=== PATIENT | female | born 1985 | race Caucasian/White ===

== ENCOUNTER 2023-07-05 09:46 | Emergency (ER) | payer OTHER, SELFPAY ==
[2023-07-05 09:51] VITALS: BP 124/81; PULSE 71; RESP 16; TEMP 36.4; O2SAT 97; BMI 30.1
--- NOTE | 2023-07-05 09:58 | ED_ITS ---
HPI - General Adult General Chief complaint: Abdominal Pain Stated complaint: ABDOMINAL PAIN Time Seen by Provider: 07/05/23 09:54 Source: patient Mode of arrival: walk-in History of Present Illness HPI narrative: 38-year-old female presents for diarrhea. She had it fourteen times yesterday and it was watery, no blood. It began three days ago after eating at a restaurant. She has not been vomiting and has not had a fever. Pain in the left upper quadrant of her abdomen. The pain is moderate. Related Data Previous Rx's Medication Instructions Recorded dicyclomine 10 mg capsule 10 mg PO QID PRN abdominal pain 07/05/23 #20 caps Allergies Allergy/AdvReac Type Severity Reaction Status Date / Time ibuprofen [From Motrin] Allergy Verified 07/05/23 09:56 Sulfa (Sulfonamide Allergy Verified 07/05/23 09:56 Antibiotics) Review of Systems ROS Narrative A ten point review of systems is negative except as noted above. Exam Narrative Exam Narrative: Nurses note and vital signs reviewed and patient is not hypoxic. General: The patient appears well and in no apparent distress. Patient is resting comfortably on cart. Skin: Warm, dry, no pallor noted. There is no rash noted. Head: Normocephalic, atraumatic Eye: Normal conjunctiva, no drainage Ears, Nose, Mouth, and Throat: oral mucosa is moist. Nares patent. Cardiovascular: Regular Rate and Rhythm Respiratory: Patient is in no distress, no accessory muscle use, lungs are clear to auscultation, no wheezing, rales or rhonchi Back: non-tender, GI: mild tenderness on the left side of her abdomen particularly in the left upper quadrant. No mass or distention. Musculoskeletal: The patient has no evidence of calf tenderness, no pitting edema, symmetrical pulses noted bilaterally Neurological: A&O, normal speech Psychiatric: Cooperative Constitutional Vital Signs, click to edit/add: Last Vital Signs Temp 97.6 F 07/05/23 09:51 Pulse 70 07/05/23 10:44 Resp 16 07/05/23 09:51 BP 106/73 07/05/23 10:44 Pulse Ox 100 07/05/23 10:44 O2 Del Method Room Air 07/05/23 09:51 Course Vital Signs Vital signs: Vital Signs Temperature 97.6 F 07/05/23 09:51 Pulse Rate 71 07/05/23 09:51 Respiratory Rate 16 07/05/23 09:51 Blood Pressure 124/81 07/05/23 09:51 Pulse Oximetry 97 07/05/23 09:51 Oxygen Delivery Method Room Air 07/05/23 09:51 Temperature 97.6 F 07/05/23 09:51 Pulse Rate 70 07/05/23 10:44 Respiratory Rate 16 07/05/23 09:51 Blood Pressure 106/73 07/05/23 10:44 Pulse Oximetry 100 07/05/23 10:44 Oxygen Delivery Method Room Air 07/05/23 09:51 Medical Decision Making MDM Narrative Medical decision making narrative: the patient's blood work is unremarkable and she is able to be discharged home. Treatment diagnosis and follow-up were discussed with the patient. Differential Diagnosis Differential Diagnosis: Astra enteritis, constipation, food poisoning Lab Data Lab results reviewed: Yes I reviewed the patient's lab results Labs: Lab Results 07/05/23 07/05/23 Range/Units 10:00 10:05 WBC 9.5 (4.0-11.0) 10^3/uL RBC 4.43 (4.20-5.40) 10^6/uL Hgb 12.7 (12.0-16.0) g/dL Hct 37.9 (36.0-48.0) % MCV 85.6 (81.0-99.0) fL MCH 28.7 (26.7-34.0) pg MCHC 33.5 (29.9-35.2) g/dL RDW 12.8 (11.0-15.0) % Plt Count 329 (150-450) 10^3/uL MPV 9.5 (9.5-13.5) fL Neut % (Auto) 68.0 (43.0-75.0) % Lymph % (Auto) 21.0 (20.5-60.0) % [place] % (Auto) 8.4 (1.7-12.0) % Eos % (Auto) 1.8 (0.9-7.0) % Baso % (Auto) 0.5 (0.2-2.0) % Neut # (Auto) 6.5 (1.4-6.5) 10^3/uL Lymph # (Auto) 2.0 (1.2-3.8) 10^3/uL [place] # (Auto) 0.8 (0.3-0.8) 10^3/uL Eos # (Auto) 0.2 (0.0-0.7) 10^3/uL Baso # (Auto) 0.1 (0.0-0.1) 10^3/uL Abs Immat Gran (auto) 0.03 (0.00-0.03) 10^3/uL Imm/Tot Granulo (auto) 0.3 (0.0-0.5) % Sodium 136 (136-145) mmol/L Potassium 3.6 (3.5-5.1) mmol/L Chloride 102 (98-107) mmol/L Carbon Dioxide 29.4 (21.0-32.0) mmol/L Anion Gap 8.2 BUN 10.0 (7.0-18.0) mg/dL Creatinine 0.96 (0.55-1.02) mg/dL Est GFR ( Amer) >60 (>=60) Est GFR (Non-Af Amer) >60 (>=60) BUN/Creatinine Ratio 10.4 Glucose 92 (74-106) mg/dL Calcium 9.0 (8.5-10.1) mg/dL Serum HCG, Qual Negative (NEGATIVE) Urine Color Yellow (YELLOW) Urine Clarity Clear (CLEAR) Urine pH 5.5 (5.0-9.0) Ur Specific [place] >=1.030 A (1.005-1.025) Urine Protein Negative (NEG/TRACE) mg/dL Urine Glucose (UA) Negative (NEGATIVE) mg/dL Urine Ketones Negative (NEGATIVE) mg/dL Urine Occult Blood Trace-i (NEGATIVE) Urine Nitrite Negative (NEGATIVE) Urine Bilirubin Negative (NEGATIVE) Urine Urobilinogen 0.2 (0.2-1.0) EU/dL Ur Leukocyte Esterase Negative (NEGATIVE) Urine RBC 2-5 A (0-2) #/HPF Urine WBC 5-10 A (NONE SEEN) #/HPF Ur Squamous Epith Cells Moderate A (NONE/RARE) #/LPF Urine Crystals None seen (None Seen) #/HPF Urine Bacteria Moderate A (NONE SEEN) #/HPF Urine Casts None seen (NONE SEEN) #/LPF Urine Mucus None seen (NONE SEEN) Ur Culture Indicated? Yes Discharge Plan Discharge Chief Complaint: Abdominal Pain Clinical Impression: Gastroenteritis Patient Disposition: Home, Self-Care Time of Disposition Decision: 11:14 Condition: Good Mode of Transportation: Private Vehicle Prescriptions / Home Meds: New dicyclomine 10 mg capsule 10 mg PO QID PRN (Reason: abdominal pain) Qty: 20 0RF Instructions: Acute Diarrhea (ED) Stand Alone Forms: Portal Instructions Referrals: Physician,Non-Staff, MD [Primary Care Provider] - 1 week Discharge Date/Time: 07/05/23 11:29
[2023-07-05 10:13] LABS: Basophils Absolute Auto 0.1 10^3/uL (0.0-0.1); Basophils Percent Auto 0.5 % (0.2-2.0); Eosinophils Absolute Auto 0.2 10^3/uL (0.0-0.7); Eosinophils Percent Auto 1.8 % (0.9-7.0); Hematocrit 37.9 % (36.0-48.0); Hemoglobin 12.7 g/dL (12.0-16.0); Immature Granulocytes Abs Auto 0.03 10^3/uL (0.00-0.03); Immature Granulocytes Pct Auto 0.3 % (0.0-0.5); Mean Corpuscular HGB Conc 33.5 g/dL (29.9-35.2); Mean Corpuscular Hemoglobin 28.7 pg (26.7-34.0); Mean Corpuscular Volume 85.6 fL (81.0-99.0); Mean Platelet Volume 9.5 fL (9.5-13.5); Monocytes Absolute Auto 0.8 10^3/uL (0.3-0.8); Monocytes Percent Auto 8.4 % (1.7-12.0); Neutrophils Absolute Auto 6.5 10^3/uL (1.4-6.5); Platelet Count 329 10^3/uL (150-450); Red Blood Count 4.43 10^6/uL (4.20-5.40); Red Cell Distribution Width 12.8 % (11.0-15.0); White Blood Count 9.5 10^3/uL (4.0-11.0)
[2023-07-05] MEDS: 0.9 % SODIUM CHLORIDE 1,000 ML 1000 ML IV (10:14)
[2023-07-05 10:17] LABS: Bilirubin Urine NEGATIVE (NEGATIVE); Blood Urine TRACE-I (NEGATIVE); Clarity Urine CLEAR (CLEAR); Color Urine YELLOW (YELLOW); Glucose Urine UA NEGATIVE (NEGATIVE); Ketones Urine NEGATIVE (NEGATIVE); Leukocyte Esterase Urine NEGATIVE (NEGATIVE); Nitrite Urine NEGATIVE (NEGATIVE); Protein Urine NEGATIVE (NEG/TRACE); Specific Gravity Urine >=1.030 (1.005-1.025); Urobilinogen Urine 0.2 EU/dL (0.2-1.0); pH Urine 5.5 (5.0-9.0)
[2023-07-05 10:25] LABS: Anion Gap 8.2; BUN Creatinine Ratio 10.4; Carbon Dioxide 29.4 mmol/L (21.0-32.0); Chloride 102 mmol/L (98-107); Estimated GFR (African America >60 (>=60); Estimated GFR (Non-African Ame >60 (>=60); Glucose 92 mg/dL (74-106); Potassium 3.6 mmol/L (3.5-5.1); Sodium 136 mmol/L (136-145)
[2023-07-05 10:27] LABS: Bacteria Urine MODERATE #/HPF (NONE SEEN); Mucus Urine NONE SEEN (NONE SEEN); Squamous Epithelial Cell Urine MODERATE #/LPF (NONE/RARE)
[2023-07-05 10:28] LABS: Cast Seen? NONE SEEN #/LPF (NONE SEEN); Crystals Seen? None Seen #/HPF (None Seen); Urine Culture Indicated YES
[2023-07-05 10:29] LABS: HCG Qualitative NEGATIVE (NEGATIVE)
[2023-07-05 10:44] VITALS: BP 106/73; PULSE 70; O2SAT 100
== END 2023-07-05 11:29 | disposition home or self-care (01) ==
PROVIDERS: Emergency Provider Emergency Medicine
DX: R10.12 Left upper quadrant pain (principal); R19.7 Diarrhea, unspecified
CPT/HCPCS: 36415; 80048; 81001; 84703; 85025; 87045; 87086; 96360; 99284

== ENCOUNTER 2024-02-07 15:50 | Outpatient (OUT) | payer OTHER, SELFPAY ==
[2024-02-07 16:45] LABS: Basophils Percent Auto 0.5 % (0.2-2.0); Eosinophils Absolute Auto 0.1 10^3/uL (0.0-0.7); Eosinophils Percent Auto 0.8 % (0.9-7.0); Hematocrit 37.8 % (36.0-48.0); Hemoglobin 12.3 g/dL (12.0-16.0); Immature Granulocytes Abs Auto 0.03 10^3/uL (0.00-0.03); Immature Granulocytes Pct Auto 0.4 % (0.0-0.5); Lymphocytes Absolute Auto 1.4 10^3/uL (1.2-3.8); Lymphocytes Percent Auto 17.7 % (20.5-60.0); Mean Corpuscular HGB Conc 32.5 g/dL (29.9-35.2); Mean Corpuscular Hemoglobin 27.9 pg (26.7-34.0); Mean Corpuscular Volume 85.7 fL (81.0-99.0); Mean Platelet Volume 9.8 fL (9.5-13.5); Monocytes Absolute Auto 0.5 10^3/uL (0.3-0.8); Monocytes Percent Auto 5.8 % (1.7-12.0); Neutrophils Absolute Auto 5.8 10^3/uL (1.4-6.5); Neutrophils Percent Auto 74.8 % (43.0-75.0); Platelet Count 344 10^3/uL (150-450); Red Blood Count 4.41 10^6/uL (4.20-5.40); Red Cell Distribution Width 13.2 % (11.0-15.0); White Blood Count 7.7 10^3/uL (4.0-11.0)
[2024-02-07 16:53] LABS: Estimated Average Glucose 108 mg/dL; Glycohemoglobin A1C 5.4 % (4.5-6.2)
[2024-02-07 17:05] LABS: HCG Quantitative <1 mIU/mL; Thyroid Stimulating Hormone 1.636 uIU/mL (0.358-3.740)
[2024-02-07 17:37] LABS: Free T4 1.12 ng/dL (0.76-1.46)
== END 2024-02-07 15:51 | disposition home or self-care (01) ==
LOC: LAB 15:50
PROVIDERS: Visit Provider Obstetrics & Gynecology
DX: E28.2 Polycystic ovarian syndrome (principal)
CPT/HCPCS: 36415; 82607; 82626; 82627; 82652; 82728; 83001; 83002; 83036; 84439; 84443; 84702; 85025

== ENCOUNTER 2024-02-07 20:36 | Outpatient (REF) | payer OTHER, SELFPAY | END 2024-02-07 20:37 | disposition home or self-care (01) | LOC: LAB 20:36 | PROVIDERS: Visit Provider Obstetrics & Gynecology | DX: Z01.419 Encounter for gynecological examination (general) (routine) without abnormal findings (principal); E28.2 Polycystic ovarian syndrome | CPT/HCPCS: 36415; 82607; 82626; 82627; 82652; 82728; 83001; 83002; 83036; 84439; 84443; 84702; 85025; 87624; G0145 ==

== ENCOUNTER 2024-03-11 09:46 | Outpatient (REF) | payer OTHER, SELFPAY ==
--- OUTSIDE RECORDS SUMMARY | 2024-03-15 07:25 | XMS_ITS | CCD ---
Author Organization [facility] Care Team Providers Care Speedboat Operator Name Role Phone Yon Meyer MD Primary Care Provider [phone] YON MEYER Referring Unavailable MEYER, YON Primary Care Unavailable MEYER, DR YON Giang Primary Care Unavailable MEYER, DR YON Giang Admitting Unavailable MEYER, DR YON Giang Attending Unavailable MEYER, DR YON Giang Primary Care Unavailable MEYER, DR YON Giang Admitting Unavailable MEYER, DR YON Giang Attending Unavailable MEYER, DR YON Giang Consulting Unavailable MEYER, DR YON Giang Primary Care Unavailable FERGUSON, DR VLAD Gasca Admitting Unavailable FERGUSON, DR VLAD Gasca Attending Unavailable FERGUSON, DR VLAD Gasca Consulting Unavailable MEYER, DR YON Giang Primary Care Unavailable FERGUSON, DR VLAD Gasca Admitting Unavailable FERGUSON, DR VLAD Gasca Attending Unavailable MEYER, DR YON Giang Consulting Unavailable MEYER, DR YON Giang Primary Care Unavailable FERGUSON, DR VLAD Gasca Admitting Unavailable FERGUSON, DR VLAD Gasca Attending Unavailable NO PCP, NO PCP Primary Care Unavailable SABIHA PORTILLO Attending Unavailable APLING, RAMANDEEP Etienne Attending Unavailable APLING, RAMANDEEP B Referring Unavailable APLING, RAMANDEEP B Attending Unavailable APLING, RAMANDEEP B Attending Unavailable MARY MANRIQUEZ Attending Unavailable APLING, RAMANDEEP B Referring Unavailable BRIAN GUTIERREZ Attending Unavailable APLING, RAMANDEEP B Referring Unavailable KELRENETTA NIELSEN Attending Unavailable APLING, RAMANDEEP B Referring Unavailable NICOLEJAMI CARTERY Attending Unavailable KELBLEY, RENETTA Attending Unavailable APLING, RAMANDEEP B Referring Unavailable KELARCELIAY, RENETTA Attending Unavailable APLING, RAMANDEEP B Referring Unavailable TOO SAXENA Attending Unavailable ZAKI GOODRICH Attending Unavailable NICOLETOO CARTER Attending Unavailable Too Saxena Attending Provider [phone] Too Saxena Attending Unavailable Too Saxena Admitting Unavailable Allergies Allergy Classification Reported Allergen(s) Allergy Type Date of Onset Reaction(s) Facility (1 source) Sulfonamides (Antibiotic) Propensity to adverse reactions to drug 6 Nausea And Vomiting, Rash [facility] Work Phone: (2 sources) SUMAtriptan; Translations: [SUMATRIPTAN] Drug Allergy 6 Swelling [facility] (2 sources) Ciprofloxacin Drug Allergy 4 [facility] Repository (2 sources) Ibuprofen Drug Allergy 3 [facility] Repository (2 sources) Plasmin Drug Allergy 3 [facility] Repository (1 source) Ciprofloxacin; Translations: [CIPROFLOXACIN HCL] Drug Allergy 7 [facility] Repository (1 source) Ibuprofen; Translations: [IBUPROFEN] Drug Allergy 7 [facility] Repository (1 source) peanut allergenic extract; Translations: [PEANUT] Drug Allergy 4 [facility] Repository (1 source) Shrimp product; Translations: [SHRIMP] Propensity to adverse reactions to food (disorder) 4 [facility] Repository (1 source) sulfaSALAzine; Translations: [SULFASALAZINE] Drug Allergy 7 [facility] Repository Medications Current Medications Medication Drug Class(es) Dates Sig (Normalized) Sig (Original) cetirizine hydrochloride 10 mg oral tablet (1 source) Histamine-1 Receptor Antagonist take 1 tablet by mouth once daily cetirizine (ZYRTEC) 10 MG tablet Take 10 mg by mouth daily 0 Active naproxen 500 mg oral tablet (1 source) Nonsteroidal Anti-inflammatory Drug Start: 02-26-2016 take 1 tablet by mouth twice daily for pain naproxen (NAPROSYN) 500 MG tablet Take 1 tablet by mouth 2 times daily For pain and inflammation 30 tablet 0 02/26/2016 Active NONFORMULARY (1 source) NONFORMULARY Vit D 3, 4000 units daily 50,000 every monday 0 Active tiZANidine 2 mg oral tablet (1 source) Central alpha-2 Adrenergic Agonist take 1 tablet by mouth every six hours as needed tiZANidine (ZANAFLEX) 2 MG tablet Take 2 mg by mouth every 6 hours as needed 0 Active Problems Active Problems Problem Classification Problem Date Documented Date Episodic/Chronic Cardiac dysrhythmias (4 sources) Palpitations; Translations: [PALPITATIONS] Onset: 06-08-2022 Episodic Disorders of teeth and jaw (2 sources) Periapical abscess without sinus; Translations: [Toothache] Onset: 02-19-2024 Episodic Headache; including migraine (1 source) Headache; including migraine; Translations: [HEADACHE UNSPECIFIED] Onset: 02-18-2022 Spondylosis; intervertebral disc disorders; other back problems (4 sources) Other spondylosis with radiculopathy, cervical region; Translations: [OTH SPONDYLS RADICULOPATHY CERV RGN] Onset: 02-15-2022 Chronic Spondylosis; intervertebral disc disorders; other back problems (1 source) Brachial neuritis; Translations: [Radiculopathy, cervical region] Episodic Unclassified (1 source) Dental Pain, Facial Swelling Onset: 02-19-2024 Past or Other Problems Problem Classification Problem Date Documented Da te Episodic/Chronic Other connective tissue disease (1 source) Pain in right arm; Translations: [PAIN IN RIGHT ARM] Onset: 02-18-2022 Episodic Results Test Name Value Interpretation Reference Range Facility [facility] 03-11-2024 L Specimen: [id number] Received: 03/12/24 Status: ASHLEY Mora Num: [id number] Spec Type: Surgical Subm Dr: Too Saxena Tissues: A Endocervix - Curettings (ECC) Procedures: HE/2, Gross/Micro L4 Age/ Patient Sex Location Account Attending Physician Davina Harris 38/F LABELL [id number] Too Saxena SPEC NUM: [id number] RECD: 03/12/24 STATUS: ASHLEY MORA NUM: [id number] MARTA: 03/11/24- SUBM DR: Too Saxena ENTERED: 03/12/[address]: Priyank,Lab SPEC TYPE: Surgical DEPT: RUCHI ELIZONDO ORDERED: HE/2, Gross/Micro L4 ORDERED: HE/2, Gross/Micro L4 Pathological Diagnosis Endocervix, curettage: Fragments of endocervix, unremarkable. Clinical Information LGSIL, positive HPV. R87.612. Gross Description Received in formalin labeled with the patient's name, date of and ECC is a 1.9 x 0.6 x 0.1 cm aggregate of jo tissue and mucus, entirely submitted in A1. CPT Codes 11048 -------- -------- Specimen: [id number] Received: 03/12/24 Status: ASHLEY Mora Num: [id number] Spec Type: Surgical Subm Dr: Too Saxena Tissues: A Endocervix - Curettings (ECC) Procedures: Sonam DU/Riddhi L4 -------- Patient: StevenDavina [id number] (Continued) -------- Signed (signature on file) Lizzy Montero MD 03/13/24 1514 Normal [facility] MR KNEE LEFT WO IV CONTRASTo n 11-24-2023 MR KNEE LEFT WO IV CONTRAST EXAMINATION: MR KNEE LEFT WO IV CONTRAST HISTORY: left knee internal derangement chronic worsening medial knee pain. Locking sensation. TECHNIQUE: Routine non-contrast MRI of the knee, LEFT COMPARISON: None RESULT: MENISCI: Medial Meniscus: Intact Lateral Meniscus: Intact LIGAMENTS: ACL, PCL, MCL, and LCL complex intact. CARTILAGE: Small area of low-grade partial-thickness chondral fissuring or signal abnormality of the medial femoral condyle. TENDONS: Distal quadriceps intact. Patellar tendon intact. Popliteus intact. BONES AND MARROW: No evidence of fracture or bone marrow replacing process. MUSCLES: Muscle bulk and signal intensity are normal. JOINT FLUID AND SYNOVIUM: No joint effusion. No synovitis. No Allen's cyst. OTHER: No other significant abnormality. IMPRESSION: Intact menisci and ligaments. Mild degenerative changes medial compartment. ELECTRONICALLY SIGNED BY: Yon Wren MD Normal Not Available CBC WITH DIFFon 06-03-2022 ABS BASOPHIL 0.04 x10^3ul Normal (0.00 - 0.16) [facility] Comment on above: Order Comment: FACIL ITY: [facility] [id number] Performed By: #### C BC/D, CHEM-C, TSHT34, GLYCO+, B12+, MG #### [facility] [address] [facility], [address] ABS EOSINOPHIL 0.14 x10^3ul Normal (0.00 - 0.40) [facility] Comment on above: Order Comment: FACIL ITY: [facility] [id number] Performed By: #### C BC/D, CHEM-C, TSHT34, GLYCO+, B12+, MG #### [facility] [address] [facility], [address] ABS IMMATURE GRANS 0.01 x10^3ul Normal (0.00 - 0.11) [facility] Comment on above: Order Comment: FACIL ITY: [facility] [id number] Performed By: #### C BC/D, CHEM-C, TSHT34, GLYCO+, B12+, MG #### [facility] [address] [place], [address] ABS LYMPHOCYTE 1.45 x10^3ul Normal (0.96 - 5.40) [facility] Comment on above: Order Comment: FACIL ITY: [facility] [id number] Performed By: #### C BC/D, CHEM-C, TSHT34, GLYCO+, B12+, MG #### [facility] [address] [place], [address] ABS MONOCYTE 0.65 x10^3ul Normal (0.10 - 1.00) [facility] Comment on above: Order Comment: FACIL ITY: [facility] [id number] Performed By: #### C BC/D, CHEM-C, TSHT34, GLYCO+, B12+, MG #### [facility] [address] [place], [address] ABS NEUTROPHIL 4.72 x10^3ul Normal (1.50 - 7.00) [facility] Comment on above: Order Comment: FACIL ITY: [facility] [id number] Performed By: #### C BC/D, CHEM-C, TSHT34, GLYCO+, B12+, MG #### [facility] [address] [place], [address] Basophils/100 WBC (Bld) 0.6 % Normal () [facility] Comment on above: Order Comment: FACIL ITY: [facility] [id number] Performed By: #### C BC/D, CHEM-C, TSHT34, GLYCO+, B12+, MG #### [facility] [address] [place], [address] Eosinophils/100 WBC (Bld) 2.0 % Normal () [place] [facility] Comment on above: Order Comment: [facility] [id number] Performed By: #### C BC/D, CHEM-C, TSHT34, GLYCO+, B12+, MG #### [facility] [address] [place], [address] Hematocrit (Bld) [Volume fraction] 38.5 % Normal (37.0 - 47.0) [facility] on above: Order Comment: [facility] [id number] Performed By: #### C BC/D, CHEM-C, TSHT34, GLYCO+, B12+, MG #### [facility] [address] [place], [address] Hemoglobin (Bld) [Mass/Vol] 12.5 g/dL Normal (12.0 - 16.0) [place] Comment on above: Order Comment: FACIL ITY: [facility] [id number] Performed By: #### C BC/D, CHEM-C, TSHT34, GLYCO+, B12+, MG #### [facility] [address] [place], [address] IMMATURE GRANS (IG) 0.1 % Normal () [facility] Comment on above: Order Comment: FACIL ITY: [facility] [id number] Performed By: #### C BC/D, CHEM-C, TSHT34, GLYCO+, B12+, MG #### [facility] [address] [place], [address] LYMPS 20.7 % Normal () [facility] Comment on above: Order Comment: FACIL ITY: [facility] [id number] Performed By: #### C BC/D, CHEM-C, TSHT34, GLYCO+, B12+, MG #### [facility] [address] [place], [address] MCH (RBC) [Entitic mass] 28.9 pg Normal (27.0 - 33.0) [facility] Comment on above: Order Comment: [facility] [id number] Performed By: #### C BC/D, CHEM-C, TSHT34, GLYCO+, B12+, MG #### [facility] [address] [place], [address] MCHC (RBC) [Mass/Vol] 32.5 g/dL Normal (30.0 - 37.0) [facility] Comment on above: Order Comment: [facility] [id number] Performed By: #### C BC/D, CHEM-C, TSHT34, GLYCO+, B12+, MG #### [facility] [address] [place], [address] MCV (RBC) [Entitic vol] 89.1 fL Normal (81.0 - 99.0) [facility] Comment on above: Order Comment: [facility]IL ITY[facility] [id number] Performed By: #### C BC/D, CHEM-C, TSHT34, GLYCO+, B12+, MG #### [facility] [address] [place], [address] MONOS 9.3 % Normal () [facility] Comment on above: Order Comment: [facility] ITY[facility] [id number] Performed By: #### C BC/D, CHEM-C, TSHT34, GLYCO+, B12+, MG #### [facility] [address] [place], [address] PLT 255 x10^3ul Normal (130 - 400) [facility] Comment on above: Order Comment: FACIL ITY: [facility] [id number] Performed By: #### C BC/D, CHEM-C, TSHT34, GLYCO+, B12+, MG #### [facility] [address] [place], [address] RBC 4.32 x10^6ul Normal (4.20 - 5.40) [facility] Comment on above: Order Comment: FACIL ITY: [facility] [id number] Performed By: #### C BC/D, CHEM-C, TSHT34, GLYCO+, B12+, MG #### [facility] [address] [place], [address] RDW-SD 43.2 fl Normal (37.0 - 49.0) [facility] Comment on above: Order Comment: FACIL ITY: [facility] [id number] Performed By: #### C BC/D, CHEM-C, TSHT34, GLYCO+, B12+, MG #### [facility] [address] [place], [address] SEGS 67.3 % Normal () [facility] Comment on above: Order Comment: FACIL ITY: [facility] [id number] Performed By: #### C BC/D, CHEM-C, TSHT34, GLYCO+, B12+, MG #### [facility] [address] [place], [address] WBC 7.02 x10^3ul Normal (3.80 - 10.60) [facility] Comment on above: Order Comment: FACIL ITY: [facility] [id number] Performed By: #### C BC/D, CHEM-C, TSHT34, GLYCO+, B12+, MG #### [facility] [address] [place], [address] COMP METABOLIC PANEL W/GFRon 06-03-2022 Albumin [Mass/Vol] 5.2 g/dL High (3.5 - 5.0) [facility] Comment on above: Performed By: #### C BC/D, CHEM-C, TSHT34, GLYCO+, B12+, MG #### [place] [facility] [address] [place], [address] ALK PHOS 58 U/L Normal (38 - 126) [place] [facility] Comment on above: Performed By: #### C BC/D, CHEM-C, TSHT34, GLYCO+, B12+, MG #### [place] [facility] [address] [place], [address] ALT [Catalytic activity/Vol] 31 U/L Normal (1 - 35) [place] [facility] Comment on above: Performed By: #### C BC/D, CHEM-C, TSHT34, GLYCO+, B12+, MG #### [facility] [address] [place], [address] AST [Catalytic activity/Vol] 28 U/L Normal (15 - 46) [place] [facility] Comment on above: Performed By: #### C BC/D, CHEM-C, TSHT34, GLYCO+, B12+, MG #### [place] [facility] [address] [place], [address] Bilirubin [Mass/Vol] 0.6 mg/dL Normal (0.2 - 1.3) [facility] Comment on above: Performed By: #### C BC/D, CHEM-C, TSHT34, GLYCO+, B12+, MG #### [place] [facility] [address] [place], [address] Calcium [Mass/Vol] 9.8 mg/dL Normal (8.6 - 10.6) [facility] Comment on above: Performed By: #### C BC/D, CHEM-C, TSHT34, GLYCO+, B12+, MG #### [facility] [address] [place], [address] Chloride [Moles/Vol] 108 mmol/L High (98 - 107) [facility] Comment on above: Performed By: #### C BC/D, CHEM-C, TSHT34, GLYCO+, B12+, MG #### [facility] [address] [place], [address] CO2 [Moles/Vol] 25 mmol/L Normal (22 - 30) [facility] Comment on above: Performed By: #### C BC/D, CHEM-C, TSHT34, GLYCO+, B12+, MG #### [facility] [address] [place], [address] Creatinine [Mass/Vol] 0.70 mg/dL Normal (0.52 - 1.04) [place] Comment on above: Performed By: #### C BC/D, CHEM-C, TSHT34, GLYCO+, B12+, MG #### [facility] [address] [place], [address] GFR- AMER 113.9 ML/M1.7 Normal (60.0 - 140.1) [place] [facility] Comment on above: Performed By: #### C BC/D, CHEM-C, TSHT34, GLYCO+, B12+, MG #### [facility] [address] [place], [address] GFR-NON AFRIC-AMER 94.2 ML/M1.7 Normal (60.0 - 115.8) [place] [facility] Comment on above: Performed By: #### C BC/D, CHEM-C, TSHT34, GLYCO+, B12+, MG #### [place] [address] [place], [address] Glucose [Mass/Vol] 95 mg/dL Normal (74 - 106) [facility] Comment on above: Performed By: #### C BC/D, CHEM-C, TSHT34, GLYCO+, B12+, MG #### [facility] [address] [place], [address] Potassium [Moles/Vol] 5.4 mmol/L High (3.5 - 5.1) [facility] Comment on above: Performed By: #### C BC/D, CHEM-C, TSHT34, GLYCO+, B12+, MG #### [facility] [address] [place], [address] Protein [Mass/Vol] 7.6 g/dL Normal (6.3 - 8.2) [facility] on above: Performed By: #### C BC/D, CHEM-C, TSHT34, GLYCO+, B12+, MG #### [facility] [address] [place], [address] Sodium [Moles/Vol] 142 mmol/L Normal (137 - 145) [facility] on above: Performed By: #### C BC/D, CHEM-C, TSHT34, GLYCO+, B12+, MG #### [facility] [address] [place], [address] Urea nitrogen [Mass/Vol] 14 mg/dL Normal (7 - 17) [facility] Comment on above: Performed By: #### C BC/D, CHEM-C, TSHT34, GLYCO+, B12+, MG #### [place] [address] [place], [address] GLYCO A1C AND AVG GLUon 09-0 2-2 Glucose [Mass/Vol] 117 mg/dL Normal (60 - 140) [facility] Comment on above: Result Comment: AVER AGE BLOOD GLUCOSE CALCULATED USING GLYCO A1C VALUE: THE [employer] RECOMMENDED REFERENCE RANGES: NORMAL <= 5.6 % PRE-DIABETES 5.7 - 6.4 % (HIGH RISK FOR DEVELOPING DIABETES) DIABETES >= 6.5 % Performed By: #### C BC/D, CHEM-C, TSHT34, GLYCO+, B12+, MG #### [facility] [address] [place], [address] HbA1c (Bld) [Mass fraction] 5.7 % Normal (4.4 - 6.4) [facility] Comment on above: Performed By: #### C BC/D, CHEM-C, TSHT34, GLYCO+, B12+, MG #### [facility] [address] [place], [address] MAGNESIUMon 06-03-2022 Magnesium [Mass/Vol] 2.4 mg/dL High (1.6 - 2.3) [facility] Comment on above: Performed By: #### C BC/D, CHEM-C, TSHT34, GLYCO+, B12+, MG #### [facility] [address] [place], [address] T3 FREE, T4 FREE AND TSHon 0 06-03-2022 Free T3 [Mass/Vol] 4.32 pg/mL Normal (2.32 - 6.09) [facility] Comment on above: Performed By: #### C BC/D, CHEM-C, TSHT34, GLYCO+, B12+, MG #### [facility] [address] [place], [address] Free T4 [Mass/Vol] 1.10 ng/dL Normal (0.78 - 2.35) [facility] Comment on above: Performed By: #### C BC/D, CHEM-C, TSHT34, GLYCO+, B12+, MG #### [facility] [address] [place], [address] TSH Qn 1.05 m[IU]/L Normal (0.470 - 4.680) [facility] Comment on above: Performed By: #### C BC/D, CHEM-C, TSHT34, GLYCO+, B12+, MG #### [facility] [address] [place], [address] VIT B12 AND FOLATEon 022 Cobalamin (Vitamin B12) [Mass/Vol] 366 pg/mL Normal (239 - 931) [facility] Comment on above: Performed By: #### C BC/D, CHEM-C, TSHT34, GLYCO+, B12+, MG #### [facility] [address] [facility], [address] FOLIC ACID 5.3 NG/ML Normal (2.8 - 20.0) [facility] Comment on above: Performed By: #### C BC/D, CHEM-C, TSHT34, GLYCO+, B12+, MG #### [facility] [address] [facility], [address] MRI CERVICAL SPINE WO CONTRA STon 10-11-2021 MRI CERVICAL SPINE WO CONTRAST EXAMINATION: MRI OF THE CERVICAL SPINE WITHOUT CONTRAST 10/11/2021 5:05 pm TECHNIQUE: Multiplanar multisequence MRI of the cervical spine was performed without the administration of intravenous contrast. COMPARISON: None. HISTORY: ORDERING SYSTEM PROVIDED HISTORY: Brachial neuritis TECHNOLOGIST PROVIDED HISTORY: Is the patient ?->No Reason for Exam: radiculopathy cervical region Additional signs and symptoms: numbness tingling down right arm into fingers, no injury FINDINGS: BONES/ALIGNMENT: There is normal alignment of the spine. The vertebral body heights are maintained. The bone marrow signal appears unremarkable. Mild C2-C3 through C5-C6 degenerative disc desiccation. SPINAL CORD: No abnormal cord signal is seen. SOFT TISSUES: No paraspinal mass identified. C2-C3: There is no significant disc protrusion, spinal canal stenosis or neural foraminal narrowing. C3-C4: There is no significant disc protrusion, spinal canal stenosis or neural foraminal narrowing. C4-C5: There is no significant disc protrusion, spinal canal stenosis or neural foraminal narrowing. C5-C6: Central/right paracentral inferiorly migrating disc extrusion. Mild spinal canal stenosis. No significant neural foraminal narrowing. C6-C7: There is no significant disc protrusion, spinal canal stenosis or neural foraminal narrowing. C7-T1: There is no significant disc protrusion, spinal canal stenosis or neural foraminal narrowing. IMPRESSION: 1. C5-C6 central/right paracentral inferiorly migrating disc extrusion mildly narrows the spinal canal. 2. No severe spinal canal stenosis or cord compression at any level in the cervical spine. 3. No significant cervical spine neural foraminal narrowing. RECOMMENDATIONS: Unavailable Interpreted by: Patrice Mcbride DO Signed by: Patrice Mcbride DO 10/11/21 Final result Normal [facility] 1. C5-C6 central/right paracentral inferiorly migrating disc extrusion mildly narrows the spinal canal. 2. No severe spinal canal stenosis or cord compression at any level in the cervical spine. 3. No significant cervical spine neural foraminal narrowing. RECOMMENDATIONS: Unavailable [facility] EXAMINATION: MRI OF THE CERVICAL SPINE WITHOUT CONTRAST 10/11/2021 5:05 pm TECHNIQUE: Multiplanar multisequence MRI of the cervical spine was performed without the administration of intravenous contrast. COMPARISON: None. HISTORY: ORDERING SYSTEM PROVIDED HISTORY: Brachial neuritis TECHNOLOGIST PROVIDED HISTORY: Is the patient ?->No Reason for Exam: radiculopathy cervical region Additional signs and symptoms: numbness tingling down right arm into fingers, no injury FINDINGS: BONES/ALIGNMENT: There is normal alignment of the spine. The vertebral body heights are maintained. The bone marrow signal appears unremarkable. Mild C2-C3 through C5-C6 degenerative disc desiccation. SPINAL CORD: No abnormal cord signal is seen. SOFT TISSUES: No paraspinal mass identified. C2-C3: There is no significant disc protrusion, spinal canal stenosis or neural foraminal narrowing. C3-C4: There is no significant disc protrusion, spinal canal stenosis or neural foraminal narrowing. C4-C5: There is no significant disc protrusion, spinal canal stenosis or neural foraminal narrowing. C5-C6: Central/right paracentral inferiorly migrating disc extrusion. Mild spinal canal stenosis. No significant neural foraminal narrowing. C6-C7: There is no significant disc protrusion, spinal canal stenosis or neural foraminal narrowing. C7-T1: There is no significant disc protrusion, spinal canal stenosis or neural foraminal narrowing. [facility] Patrice cMbride DO - 10/11/2021 EXAMINATION: MRI OF THE CERVICAL SPINE WITHOUT CONTRAST 10/11/2021 5:05 pm TECHNIQUE: Multiplanar multisequence MRI of the cervical spine was performed without the administration of intravenous contrast. COMPARISON: None. HISTORY: ORDERING SYSTEM PROVIDED HISTORY: Brachial neuritis TECHNOLOGIST PROVIDED HISTORY: Is the patient ?->No Reason for Exam: radiculopathy cervical region Additional signs and symptoms: numbness tingling down right arm into fingers, no injury FINDINGS: BONES/ALIGNMENT: There is normal alignment of the spine. The vertebral body heights are maintained. The bone marrow signal appears unremarkable. Mild C2-C3 through C5-C6 degenerative disc desiccation. SPINAL CORD: No abnormal cord signal is seen. SOFT TISSUES: No paraspinal mass identified. C2-C3: There is no significant disc protrusion, spinal canal stenosis or neural foraminal narrowing. C3-C4: There is no significant disc protrusion, spinal canal stenosis or neural foraminal narrowing. C4-C5: There is no significant disc protrusion, spinal canal stenosis or neural foraminal narrowing. C5-C6: Central/right paracentral inferiorly migrating disc extrusion. Mild spinal canal stenosis. No significant neural foraminal narrowing. C6-C7: There is no significant disc protrusion, spinal canal stenosis or neural foraminal narrowing. C7-T1: There is no significant disc protrusion, spinal canal stenosis or neural foraminal narrowing. IMPRESSION: 1. C5-C6 central/right paracentral inferiorly migrating disc extrusion mildly narrows the spinal canal. 2. No severe spinal canal stenosis or cord compression at any level in the cervical spine. 3. No significant cervical spine neural foraminal narrowing. RECOMMENDATIONS: Unavailable [employer] Phone: Radiology Study observation (narrative) [employer] Phone: MRI CERVICAL SPINE WO CONTRA STOrdered By: Patrice Mcbride on 10-11-2021 [employer]ly Phone: Coding Summary.on 01-28-2019 Coding Summary. CODING DATE: 01/28/2019 FINAL [facility] STATUS: Home [place]Routine [place]) PAYOR: Medicaid EAPG DESCRIPTION 0471 PLAIN FILM ADMIT DX: REASON FOR VISIT DX: M79.672 Pain in left foot FINAL DX: PRINCIPAL: M79.672 Pain in left foot SECONDARY: PYMT PROC EAPG STAT DESCRIPTION DOCTOR NAME DATE NOTE: The code number assigned matches the documented diagnosis and / or procedure in the patient's chart. However, the narrative phrase printed from the coding software may appear abbreviated, or result in slightly different terminology. Coded By: Anjelica Esparza CphT Date Saved: 01/28/2019 11:18 am Normal [facility] XR Ankle 3+ Views Lefton XR Ankle 3+ Views Left Exam Date/Time: 01/24/2019 17:41 EDT Reason for Exam: M79.672, Left foot pain Report IMPRESSION: NEGATIVE LEFT ANKLE. COMMENT: Four images of the left ankle show no fracture or dislocation. Ankle mortise is well maintained. There is a small bone island in the left distal fibula. There is no other bony or joint abnormality seen. Soft tissues are unremarkable. FINAL REPORT Dictated: 01/25/2019 7:54 am Edvin Aldridge M.D. Signed (Electronic Signature): 01/25/2019 8:58 am Signed by: Edvin Aldridge M.D. Transcribed by: miguel a Technologist: JOSE Byrnes [facility] Coding Summary.on 01-06-2019 Coding Summary. CODING DATE: 01/06/2019 FINAL [facility] STATUS: Home (Routine [place]) PAYOR: Medicaid EAPG DESCRIPTION 0527 PERIPHERAL NERVE DIAGNOSES ADMIT DX: REASON FOR VISIT DX: R20.0 Anesthesia of skin M79.601 Pain in right arm FINAL DX: PRINCIPAL: M54.12 Radiculopathy, cervical region SECONDARY: F17.210 Nicotine dependence, cigarettes, uncomplicated PYMT PROC EAPG STAT DESCRIPTION DOCTOR NAME DATE NOTE: The code number assigned matches the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 year and stated she had difficulty in having sensation into her right arm. The patient describes the pain as 5/10. It varies depending on her activity. 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 Pushing, pulling, lifting, housework, folding, ADLs aggravate the pain. She also has low back pain; however, it depends on the weather. The patient states she is allergic to NSAID. It gives her hives. The patient currently takes [place] 5/325 t.i.d.; has taken Zanaflex in the past as prescribed by Dr. Meyer. She also takes Fioricet for her headaches. The patient recently, in , had an MRI performed in [place]. Unfortunately, we do not have the report nor the disc. The patient's PAST MEDICAL HISTORY / SURGICAL HISTORY / REVIEW OF SYSTEMS are noted on the chart, along with the MEDICATION LIST / ALLERGIES. PHYSICAL EXAMINATION: GENERAL: Upon physical examination, this is a well nourished, 36-year-old female, who does not appear to be in any acute distress. VITAL SIGNS: Stable at 112/72 with a heart rate of 68. At a height of 5'4 , the patient weighs 74 kg. FOCUSED EVALUATION ALONG THE CERVICOTHORACIC REGION: Cervical extension, compression, direct palpation along the posterior elements on the right hand side aggravate the patient's pain, concordant with early facet arthropathy, not significant. Paravertebral spasming is present, however, not severe. EXTREMITY: No clubbing or cyanosis is noted. MUSCULOSKELETAL: Intact in the upper extremity on the right hand side; however, the volitionality is of concern. The patient does have some weakness along the C8-T1 distribution, however, not extreme. Interossei muscles are maintained. NEUROLOGICALLY: No overt hypoesthesia. No asymmetry in temperature check. PSYCHIATRICALLY: Affect is appropriate. IMPRESSION: History of chronic headaches, cervical spondylosis, right arm pain, possible C8-T1 neuritis/radiculitis. PLAN: We have requested that the patient bring in the MRI, the images and the report. In the interim, should the patient need any Russell[place] refills, our plan would be to decrease the [place] to b.i.d., subsequent to U-Tox. The patient understands and would like to proceed. CC: Yon Meyer D.O. [facility] Signed and Approved by: DR VLAD FERGUSON . 02/22/2022 12:21:00 [facility] Evaluation note Note Date & Type Note Facility Evaluation note Diagnosis Brachial neuritis Brachial neuritis or radiculitis nos documented in this encounter [facility] Work Phone: Evaluation note Note Date & Type Note Facility Evaluation note No assessment information availa [facility] Work Phone: Summary Purpose Family History No Family History Records FoundNo Family History Records FoundNo Family History Records FoundNo Family History Records FoundNo Family History Records FoundNo Family History Records FoundNo Family History Records Found Advance Directives No Advanced Directives Records FoundDocuments on File Type Date Recorded 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 Reason for Referral Specialty Diagnoses / Procedures Referred By Contac t Referred To Contact Radiology Diagnoses Brachial neuritis Procedures MRI CERVICAL SPINE WO CONTRAST [id number], [id number] Yon Meyer MD [address] [place] [address] Referral ID Status Reason Start Date Expiration Date Visits Re quested Visits Authorized [id number] Closed 10/04/2021 11/03/2021 1 1 Additional Source Comments INFORMATION SOURCE (unrecogn ized section and content) DATE CREATED AUTHOR 11/07/2019 [facility] DATE CREATED AUTHOR AUTHOR'S ORGANIZ ATION 10/15/2021 [facility] DATE CREATED AUTHOR AUTHOR'S ORGANIZ ATION 06/04/2022 [facility] DATE CREATED AUTHOR AUTHOR'S ORGANIZ ATION 07/03/2022 [facility] DATE CREATED AUTHOR AUTHOR'S ORGANIZ ATION 02/20/2024 [facility] DATE CREATED AUTHOR AUTHOR'S ORGANIZ ATION 03/11/2024 [facility] DATE CREATED AUTHOR AUTHOR'S ORGANIZ ATION 03/15/2024 [facility] ys[facility] Reason for Visit (unrecogniz ed section and content) Specialty Diagnoses / Procedures Referred By Contac t Referred To Contact Radiology Diagnoses Brachial neuritis Procedures MRI CERVICAL SPINE WO CONTRAST [id number], [id number] Yon Meyer MD [address] [place] [address] Referral ID Status Reason Start Date Expiration Date Visits Re quested Visits Authorized [id number] Closed 10/04/2021 11/03/2021 1 1 Care Teams (unrecognized sec tion and content) 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 This clinical summary was aggregated from multiple sources. Caution should be exercised in using it in the provision of clinical care. This summary normalizes information from multiple sources, and as a consequence, information in this document may materially change the coding, format and clinical context of patient data. In addition, data may be omitted in some cases. CLINICAL DECISIONS SHOULD BE BASED ON THE PRIMARY CLINICAL RECORDS. [facility] [employer] [facility]. provides no warranty or guarantee of the accuracy or completeness of information in this document.
== END 2024-03-11 09:47 ==
LOC: LAB 09:46
PROVIDERS: Visit Provider Obstetrics & Gynecology
DX: R87.612 Low grade squamous intraepithelial lesion on cytologic smear of cervix (LGSIL) (principal)
CPT/HCPCS: 88305

== ENCOUNTER 2024-09-27 21:44 | Emergency (ER) | payer OTHER, SELFPAY ==
[2024-09-27 21:47] VITALS: BP 146/76; PULSE 84; TEMP 36.7; O2SAT 99; BMI 29.2
--- OUTSIDE RECORDS SUMMARY | 2024-09-27 21:49 | XMS_ITS | CCD ---
Author Organization [facility] Care Team Providers Care Airplane Cleaner Name Role Phone Yon Meyer MD Primary Care Provider YON MEYER Referring Unavailable MEYER, YON Primary [...] Unavailable FERGUSON, DR VLAD Gasca Attending Unavailable Too Saxena Attending Provider [phone] Too Saxena Attending Unavailable Too Saxena Admitting Unavailable NO PCP, NO PCP Primary Care Unavailable SABIHA PORTILLO Attending Unavailable NO PCP, NO PCP Primary Care Unavailable VLADIMIR ALONZO Attending Unavailable VLADIMIR ALONZO Referring Unavailable NO PCP, NO PCP Primary Care Unavailable RAMANDEEP CARRASCO Attending Unavailable APLRAMANDEEP KIRK Referring Unavailable APLINGRAMANDEEP Attending Unavailable APLRAMANDEEP KIRK Attending Unavailable MARY MANRIQUEZ Attending Unavailable APLING, RAMANDEEP Etienne Referring Unavailable BRIAN GUTIERREZ Attending Unavailable APLINGRAMANDEEP Referring Unavailable RENETTA ARELLANO Attending Unavailable APLRAMANDEEP KIRK Referring Unavailable TOO SAXENA Attending Unavailable RENETTA ARELLANO Attending Unavailable APLINGRAMANDEEP Referring Unavailable RENETTA ARELLANO Attending Unavailable APLRAMANDEEP KIRK Referring Unavailable TOO SAXENA Attending Unavailable SARAH GOODRICH Attending Unavailable TOO SAXENA Attending Unavailable TOO SAXENA Attending Unavailable SARAH GOODRICH Attending Unavailable Unallocated , Noms Provider Primary Care Hoa irina Ramandeep Carrasco NP Unavailable Allergies Allergy Classification Reported Allergen(s) Allergy Type Date of Onset Reaction(s) Facility (6 sources) Sulfonamides (Antibiotic) Propensity to adverse reactions to drug 10-18-19 16 Nausea And Vomiting, Rash [employer] Work Phone: (7 sources) SUMAtriptan; Translations: [SUMATRIPTAN] Drug Allergy 10-18-19 16 Swelling, Anaphylaxis, Shortness of breath, Unknown [facility] [employer] (2 sources) Ciprofloxacin Drug Allergy 07-24-20 14 [facility] (2 sources) Ibuprofen Drug Allergy 04-25-20 13 [facility] (2 sources) Plasmin Drug Allergy 04-25-20 13 [facility] (6 sources) Ciprofloxacin; Translations: [CIPROFLOXACIN HCL] Drug Allergy 10-11-19 17 Dizziness [facility] (6 sources) Ibuprofen; Translations: [IBUPROFEN] Drug Allergy 10-11-19 17 Hives, Itching, Shortness of breath, Swelling [facility] (1 source) peanut allergenic extract; Translations: [PEANUT] Drug Allergy 02-19-20 [facility] (1 source) Shrimp product; Translations: [SHRIMP] Propensity to adverse reactions to food (disorder) 02-19-20 [facility] (6 sources) sulfaSALAzine; Translations: [SULFASALAZINE] Drug Allergy 10-11-19 17 Rash [facility] (5 sources) Peanut oil Propensity to adverse reactions 11-22-19 24 [facility] (5 sources) Shrimp product Propensity to adverse reactions 11-22-19 24 [facility] (5 sources) Shrimp product Propensity to adverse reactions 02-19-20 24 [facility] (5 sources) Peanut-Containing Drug Products Drug Intolerance 02-19-20 24 [facility] Medications Current Medications Medication Drug Class(es) Dates Sig (Normalized) Sig (Original) cetirizine hydrochloride 10 mg oral tablet (1 source) Histamine-1 Receptor Antagonist take 1 tablet by mouth once daily cetirizine (ZYRTEC) 10 MG tablet Take 10 mg by mouth daily 0 Active clindamycin 10 mg/ml topical lotion (3 sources) Lincosamide Antibacterial Start: 08-13-2024 End: 08-13-2025 clindamycin (Cleocin-T) 1 % lotion Indications: Acne, unspecified acne type Apply topically 2 (two) times a day 60 mL 1 08/13/2024 08/13/2025 Active fluticasone propionate 0.05 mg/actuat metered dose nasal spray (5 sources) Corticosteroid fluticasone (Flonase) 50 MCG/ACT nasal spray [place] 1 spray every day by intranasal route as needed for 5 days. Active levonorgestrel 0.301902 mg/hr intrauterine system (5 sources) Progestin, Progestin-containing Intrauterine Device Start: 01-03-2024 Levonorgestrel intrauterine device magnesium oxide 400 mg oral tablet (5 sources) Start: 04-01-2024 End: 10-28-2024 take 1 tablet by mouth once daily magnesium oxide (Mag-Ox) 400 MG tablet Indications: Nonintractable headache, unspecified chronicity pattern, unspecified headache type Take 1 tablet (400 mg) by mouth Daily 30 tablet 6 04/01/2024 10/28/2024 Active minocycline 50 mg oral tablet (3 sources) Tetracycline-class Drug Start: 08-13-2024 End: 10-12-2024 take 1 tablet by mouth in the morning minocycline (Dynacin) 50 MG tablet Indications: Acne, unspecified acne type Take 1 tablet (50 mg) by mouth in the morning and 1 tablet (50 mg) before bedtime. 60 tablet 1 08/13/2024 10/12/2024 Active naproxen 500 mg oral tablet (1 source) Nonsteroidal Anti-inflammatory Drug Start: 02-26-2016 take 1 tablet by mouth twice daily for pain naproxen (NAPROSYN) 500 MG tablet Take 1 tablet by mouth 2 times daily For pain and inflammation 30 tablet 0 02/26/2016 Active NONFORMULARY (1 source) NONFORMULARY Vit D 3, 4000 units daily 50,000 every monday 0 Active phentermine hydrochloride 37.5 mg oral tablet (12 sources) Sympathomimetic Amine Anorectic Start: 04-01-2024 End: 10-06-2024 take 1 tablet by mouth before mealtime phentermine (Adipex-P) 37.5 MG tablet Indications: Encounter for weight management Take 1 tablet (37.5 mg) by mouth in the morning. Take before meals. 90 tablet 07/08/2024 10/06/2024 Active tiZANidine 2 mg oral tablet (1 source) Central alpha-2 Adrenergic Agonist take 1 tablet by mouth every six hours as needed tiZANidine (ZANAFLEX) 2 MG tablet Take 2 mg by mouth every 6 hours as needed 0 Active ubrogepant 50 mg oral tablet (1 source) Start: 08-28-2024 Ubrogepant (Ubrelvy) 50 MG tablet Indications: Nonintractable headache, unspecified chronicity pattern, unspecified headache type Take 1 tablet by mouth if needed (Take 1 PO every other day PRN) for up to 10 doses 10 tablet 1 08/28/2024 Active Problems Active Problems Problem Classification Problem Date Documented Date Episodic/Chronic Administrative/social admission (6 sources) Patient encounter status; Translations: [Persons encountering health services in other specified circumstances] 07-08-2024 Episodic Cardiac dysrhythmias (4 sources) Palpitations; Translations: [PALPITATIONS] Onset: 06-08-2022 Episodic Headache; including migraine (2 sources) Headache; Translations: [Nonintractable headache, unspecified chronicity pattern, unspecified headache type] 08-13-2024 Episodic Headache; including migraine (1 source) Headache; including migraine; Translations: [HEADACHE UNSPECIFIED] Onset: 02-18-2022 Other non-traumatic joint disorders (1 source) Hip pain Onset: 06-06-2024 Episodic Other skin disorders (4 sources) Acne; Translations: [Acne, unspecified] 08-20-2024 Episodic Spondylosis; intervertebral disc disorders; other back problems (4 sources) Other spondylosis with radiculopathy, cervical region; Translations: [OT SPONDYLS RADICULOPATHY CERV RGN] Onset: 02-15-2022 Chronic Spondylosis; intervertebral disc disorders; other back problems (2 sources) Brachial neuritis; Translations: [Radiculopathy, cervical region] Onset: 06-06-2024 Episodic Unclassified (1 source) Dental Pain, Facial Swelling Onset: 02-19-2024 Past or Other Problems Problem Classification Problem Date Documented Da te Episodic/Chronic Disorders of teeth and jaw (2 sources) Periapical abscess without sinus; Translations: [Toothache] Onset: 02-19-2024 Episodic Other connective tissue disease (1 source) Pain in right arm; Translations: [PAIN IN RIGHT ARM] Onset: 02-18-2022 Episodic Results Test Name Value Interpretation Reference Range Facility XR HIP RT 2-3 VIEWS W OR WO PELVISon 06-06-2024 XR HIP RT 2-3 VIEWS W OR WO PELVIS XR HIP RT 2-3 VIEWS W OR WO PELVIS Clinical history: Right hip pain Right hip: 06/06/2024 COMPARISON: None FINDINGS: 3 views the right hip were obtained. No focal osseous abnormality is evident. The trabecular pattern within the proximal femur is within normal limits. There is no cortical irregularity or periosteal new bone formation. Other visualized pelvic structures appear within normal limits IMPRESSION: No acute osseous abnormality evident radiographically. Finalized by Hansel Sterling MD on 06/06/2024 3:09 PM [facility] 03-11-2024 L Specimen: [id number] Received: 03/12/24 Status: ASHLEY Mora Num: [id number] Spec Type: Surgical Subm : Too Saxena Tissues: A Endocervix - Curettings (ECC) Procedures: HE/2, Gross/Micro L4 Age/ Patient Sex Location Account Attending Physician Davina Harris 38/F LABELL [id number] Too Saxena SPEC NUM: [id number] RECD: 03/12/24 STATUS: ASHLEY MORA NUM: [id number] MARTA: 03/11/24- SUBM DR: Too Saxena ENTERED: 03/12/[address] [facility] [address]: Priyank,Lab SPEC TYPE: Surgical DEPT: RUCHI [...] mucus, entirely submitted in A1. CPT Codes 95474 -------- -------- Specimen: [id number] Received: 03/12/24 Status: ASHLEY Mora Num: [id number] Spec Type: Surgical Subm Dr: Too Saxena Tissues: A Endocervix - Curettings (ECC) Procedures: KEV/Sonam Mondragon/Riddhi L4 -------- Patient: Davina Harris [id number] (Continued) -------- Signed (signature on file) Lizzy Montero MD 03/13/24 1514 Normal [facility] MR KNEE LEFT WO IV [...] BASOPHIL 0.04 x10^3ul Normal (0.00 - 0.16) [facility] Comment on above: Order Comment: FACIL ITY: [facility] [id number] Performed By: #### C BC/D, CHEM-C, TSHT34, GLYCO+, B12+, MG #### [facility] [address] [facility], [facility] ABS EOSINOPHIL 0.14 x10^3ul Normal (0.00 - 0.40) [facility] Comment on above: Order Comment: FACIL ITY: [facility] [id number] Performed By: #### C BC/D, CHEM-C, TSHT34, GLYCO+, B12+, MG #### [facility] [address] [facility], [id number] ABS IMMATURE GRANS 0.01 x10^3ul Normal (0.00 - 0.11) [facility] Comment on above: Order Comment: FACIL ITY: [facility] [id number] Performed By: #### C BC/D, CHEM-C, TSHT34, GLYCO+, B12+, MG #### [facility] [address] [place], [address] ABS LYMPHOCYTE 1.45 x10^3ul Normal (0.96 - 5.40) [facility] Comment on above: Order Comment: FACIL ITY: [facility] [id number] Performed By: #### C BC/D, CHEM-C, TSHT34, GLYCO+, B12+, MG #### [facility] [address] [place], [address] ABS MONOCYTE 0.65 x10^3ul Normal (0.10 - 1.00) [facility] Comment on above: Order Comment: FACIL ITY: [facility] [id number] Performed By: #### C BC/D, CHEM-C, TSHT34, GLYCO+, B12+, MG #### [facility] [address] [place], [address] ABS NEUTROPHIL 4.72 x10^3ul Normal (1.50 - 7.00) [facility] Comment on above: Order Comment: FACIL ITY: [facility] [id number] Performed By: #### C BC/D, CHEM-C, TSHT34, GLYCO+, B12+, MG #### [facility] [address] [place], [address] Basophils/100 WBC (Bld) 0.6 % Normal () [facility] Comment on above: Order Comment: FACIL ITY: [facility] [id number] Performed By: #### C BC/D, CHEM-C, TSHT34, GLYCO+, B12+, MG #### [facility] [address] [place], [address] Eosinophils/100 WBC (Bld) 2.0 % Normal () [facility] Comment on above: Order Comment: FACIL ITY: [facility] [id number] Performed By: #### C BC/D, CHEM-C, TSHT34, GLYCO+, B12+, MG #### [facility] [address] [place], [address] Hematocrit (Bld) [Volume fraction] 38.5 % Normal (37.0 - 47.0) [facility] Comment on above: Order Comment: [facility] [id number] Performed By: #### C BC/D, CHEM-C, TSHT34, GLYCO+, B12+, MG #### [facility] [address] [place], [address] Hemoglobin (Bld) [Mass/Vol] 12.5 g/dL Normal (12.0 - 16.0) [facility] Comment on above: Order Comment: [facility] [id number] Performed By: #### C BC/D, CHEM-C, TSHT34, GLYCO+, B12+, MG #### [facility] [address] [place], [address] IMMATURE GRANS (IG) 0.1 % Normal () [facility] Comment on above: Order Comment: [facility] [id number] Performed By: #### C BC/D, CHEM-C, TSHT34, GLYCO+, B12+, MG #### [facility] [address] [place], [address] LYMPS 20.7 % Normal () [facility] Comment on above: Order Comment: [facility] [id number] Performed By: #### C BC/D, CHEM-C, TSHT34, GLYCO+, B12+, MG #### [facility] [address] [place], [address] MCH (RBC) [Entitic mass] 28.9 pg Normal (27.0 - 33.0) [facility] Comment on above: Order Comment: FACIL ITY: [facility] [id number] Performed By: #### C BC/D, CHEM-C, TSHT34, GLYCO+, B12+, MG #### [facility] [address] [place], [address] MCHC (RBC) [Mass/Vol] 32.5 g/dL Normal (30.0 - 37.0) [facility] Comment on above: Order Comment: FACIL ITY: [facility] [id number] Performed By: #### C BC/D, CHEM-C, TSHT34, GLYCO+, B12+, MG #### [facility] [address] [place], [address] MCV (RBC) [Entitic vol] 89.1 fL Normal (81.0 - 99.0) [facility] Comment on above: Order Comment: FACIL ITY: [facility] [id number] Performed By: #### C BC/D, CHEM-C, TSHT34, GLYCO+, B12+, MG #### [facility] [address] [place], [address] MONOS 9.3 % Normal () [facility] Comment on above: Order Comment: [facility] [id number] Performed By: #### C BC/D, CHEM-C, TSHT34, GLYCO+, B12+, MG #### [place] [address] [place], [address] PLT 255 x10^3ul Normal (130 - 400) [place] Comment on above: Order Comment: [facility] [id number] Performed By: #### C BC/D, CHEM-C, TSHT34, GLYCO+, B12+, MG #### [facility] [address] [place], [address] RBC 4.32 x10^6ul Normal (4.20 - 5.40) [facility] Comment on above: Order Comment: FACIL ITY: [facility] [id number] Performed By: #### C BC/D, CHEM-C, TSHT34, GLYCO+, B12+, MG #### [facility] [address] [place], [address] RDW-SD 43.2 fl Normal (37.0 - 49.0) [facility] Comment on above: Order Comment: FACIL ITY: [facility] [id number] Performed By: #### C BC/D, CHEM-C, TSHT34, GLYCO+, B12+, MG #### [facility] [address] [place], [address] SEGS 67.3 % Normal () [facility] Comment on above: Order Comment: FACIL ITY: [facility] [id number] Performed By: #### C BC/D, CHEM-C, TSHT34, GLYCO+, B12+, MG #### [facility] [address] [place], [address] WBC 7.02 x10^3ul Normal (3.80 - 10.60) [facility] Comment on above: Order Comment: FACIL ITY: [facility] [id number] Performed By: #### C BC/D, CHEM-C, TSHT34, GLYCO+, B12+, MG #### [facility] [address] [place], [address] COMP METABOLIC PANEL W/GFRon 06-03-2022 Albumin [Mass/Vol] 5.2 g/dL High (3.5 - 5.0) [facility] Comment on above: Performed By: #### C BC/D, CHEM-C, TSHT34, GLYCO+, B12+, MG #### [facility] [address] [place], [address] ALK PHOS 58 U/L Normal (38 - 126) [facility] Comment on above: Performed By: #### C BC/D, CHEM-C, TSHT34, GLYCO+, B12+, MG #### [facility] [address] [place], [address] ALT [Catalytic activity/Vol] 31 U/L Normal (1 - 35) [facility] Comment on above: Performed By: #### C BC/D, CHEM-C, TSHT34, GLYCO+, B12+, MG #### [facility] [address] [place], [address] AST [Catalytic activity/Vol] 28 U/L Normal (15 - 46) [facility] Comment on above: Performed By: #### C BC/D, CHEM-C, TSHT34, GLYCO+, B12+, MG #### [facility] [address] [place], [address] Bilirubin [Mass/Vol] 0.6 mg/dL Normal (0.2 - 1.3) [facility] Comment on above: Performed By: #### C BC/D, CHEM-C, TSHT34, GLYCO+, B12+, MG #### [facility] [address] [place], [address] Calcium [Mass/Vol] 9.8 mg/dL Normal (8.6 - 10.6) [facility] Comment on above: Performed By: #### C BC/D, CHEM-C, TSHT34, GLYCO+, B12+, MG #### [facility] [address] [place], [address] Chloride [Moles/Vol] 108 mmol/L High (98 - 107) [facility] Comment on above: Performed By: #### C BC/D, CHEM-C, TSHT34, GLYCO+, B12+, MG #### [facility] [address] [place], [address] CO2 [Moles/Vol] 25 mmol/L Normal (22 - 30) [facility] Comment on above: Performed By: #### C BC/D, CHEM-C, TSHT34, GLYCO+, B12+, MG #### [facility] [address] [place], [address] Creatinine [Mass/Vol] 0.70 mg/dL Normal (0.52 - 1.04) [facility] Comment on above: Performed By: #### C BC/D, CHEM-C, TSHT34, GLYCO+, B12+, MG #### [facility] [address] [place], [address] GFR- AMER 113.9 ML/M1.7 Normal (60.0 - 140.1) [facility] Comment on above: Performed By: #### C BC/D, CHEM-C, TSHT34, GLYCO+, B12+, MG #### [facility] [address] [place], [address] GFR-NON AFRIC-AMER 94.2 ML/M1.7 Normal (60.0 - 115.8) [facility] Comment on above: Performed By: #### C BC/D, CHEM-C, TSHT34, GLYCO+, B12+, MG #### [facility] [address] [place], [address] Glucose [Mass/Vol] 95 mg/dL Normal (74 - 106) [facility] Comment on above: Performed By: #### C BC/D, CHEM-C, TSHT34, GLYCO+, B12+, MG #### [place] [address] [place], [address] Potassium [Moles/Vol] 5.4 mmol/L High (3.5 - 5.1) [facility] Comment on above: Performed By: #### C BC/D, CHEM-C, TSHT34, GLYCO+, B12+, MG #### [place] [address] [place], [address] Protein [Mass/Vol] 7.6 g/dL Normal (6.3 - 8.2) [facility] Comment on above: Performed By: #### C BC/D, CHEM-C, TSHT34, GLYCO+, B12+, MG #### [facility] [address] [place], [address] Sodium [Moles/Vol] 142 mmol/L Normal (137 - 145) [facility] Comment on above: Performed By: #### C BC/D, CHEM-C, TSHT34, GLYCO+, B12+, MG #### [facility] [address] [place], [address] Urea nitrogen [Mass/Vol] 14 mg/dL Normal (7 - 17) [facility] Comment on above: Performed By: #### C BC/D, CHEM-C, TSHT34, GLYCO+, B12+, MG #### [place] [address] [place], [address] GLYCO A1C AND AVG GLUon 09-0 2-2021 Glucose [Mass/Vol] 117 mg/dL Normal (60 - 140) [facility] Comment on above: Result Comment: AVER AGE BLOOD GLUCOSE CALCULATED USING GLYCO A1C VALUE: THE [employer] RECOMMENDED REFERENCE RANGES: NORMAL <= 5.6 % PRE-DIABETES 5.7 - 6.4 % (HIGH RISK FOR DEVELOPING DIABETES) DIABETES >= 6.5 % Performed By: #### C BC/D, CHEM-C, TSHT34, GLYCO+, B12+, MG #### [place] [address] [place], [address] HbA1c (Bld) [Mass fraction] 5.7 % Normal (4.4 - 6.4) [facility] Comment on above: Performed By: #### C BC/D, CHEM-C, TSHT34, GLYCO+, B12+, MG #### [facility] [address] [place], [address] MAGNESIUMon 06-03-2022 Magnesium [Mass/Vol] 2.4 mg/dL High (1.6 - 2.3) [facility] Comment on above: Performed By: #### C BC/D, CHEM-C, TSHT34, GLYCO+, B12+, MG #### [facility] [address] [place], [address] T3 FREE, T4 FREE AND TSHon 0 06-03-2022 Free T3 [Mass/Vol] 4.32 pg/mL Normal (2.32 - 6.09) [facility] Comment on above: Performed By: #### C BC/D, CHEM-C, TSHT34, GLYCO+, B12+, MG #### [facility] [address] [place], [address] Free T4 [Mass/Vol] 1.10 ng/dL Normal (0.78 - 2.35) [facility] Comment on above: Performed By: #### C BC/D, CHEM-C, TSHT34, GLYCO+, B12+, MG #### [place] [address] [place], [address] TSH Qn 1.05 m[IU]/L Normal (0.470 - 4.680) [facility] Comment on above: Performed By: #### C BC/D, CHEM-C, TSHT34, GLYCO+, B12+, MG #### [place] [address] [place], [address] VIT B12 AND FOLATEon 022 Cobalamin (Vitamin B12) [Mass/Vol] 366 pg/mL Normal (239 - 931) [facility] Comment on above: Performed By: #### C BC/D, CHEM-C, TSHT34, GLYCO+, B12+, MG #### [place] [facility] [address] [place], [address] FOLIC ACID 5.3 NG/ML Normal (2.8 - 20.0) [facility] Comment on above: Performed By: #### C BC/D, CHEM-C, TSHT34, GLYCO+, B12+, MG #### [facility] [address] [place], [address] MRI CERVICAL SPINE WO CONTRA STon 10-11-2021 [...] Patrice Mcbride DO 10/11/21 Final result Normal [facility] 1. C5-C6 central/right paracentral inferiorly migrating disc extrusion mildly narrows the spinal canal. 2. No severe spinal canal stenosis or cord compression at any level in the cervical spine. 3. No significant cervical spine neural foraminal narrowing. RECOMMENDATIONS: Unavailable [facility] EXAMINATION: MRI OF THE CERVICAL SPINE [...] spinal canal stenosis or neural foraminal narrowing. [facility] Sessions, Patrice, - 10/11/2021 EXAMINATION: MRI OF THE CERVICAL [...] cervical spine neural foraminal narrowing. RECOMMENDATIONS: Unavailable [facility] Phone: Radiology Study observation (narrative) [facility] Phone: MRI CERVICAL SPINE WO CONTRA STOrdered By: Patrice Mcbride on 10-11-2021 [facility] Phone: Coding Summary.on 01-28-2019 Coding Summary. CODING DATE: 01/28/[address] [facility] STATUS: Home (Routine DC) PAYOR: Medicaid EAPG DESCRIPTION 0471 PLAIN FILM [...] CphT Date Saved: 01/28/2019 11:18 am Normal [facility] XR Ankle 3+ Views Lefton XR Ankle [...] M.D. Transcribed by: miguel a Technologist: JOSE Normal [facility] Coding Summary.on 01-06-2019 Coding Summary. CODING DATE: 01/06/2019 FINAL [facility] STATUS: Home (Routine DC) PAYOR: Medicaid [facility] DESCRIPTION 0527 PERIPHERAL NERVE DIAGNOSES ADMIT DX: [...] Revised Date Saved: 01/06/2019 03:17 pm Normal [facility] ED Clinical Summaryon 2018 ED Clinical Summary [address] [address] ED Clinical Summary Person Information Name: DAVINA HARRIS Vicky/[facility] Age: 33 Years : 1985 12:00 AM Sex: Female Language: Lithuanian PCP: Jose Rios MD Marital Status: Single Phone: [phone] Visit Id: Visit Reason: Arm pain-swelling; RT [...] 01/01/2019 2:26 PM 01/01/2019 2:26 PM ADDRESS: [address] [place] [phone] PHYS DOC NOTES: MEDICAL INFORMATION: Prescriptions Given: PATIENT EDUCATION INFORMATION: Instructions: Cervical Radiculopathy Follow up: With: Address: When: Jose Rios [address] [place] [address] Business (1) Within 2 to 3 days Comments: Return to ED if symptoms worsen DIAGNOSIS: 1:Cervical radicular pain Normal [facility] ED Note-Physicianon 01-02-20 19 ED Note-Physician Basic Information Time Seen: Rosa Pearson DO 01/01/2019 13:26 Chief Complaint Pt states she has had pain, numbness, and tingling in her right arm since mid-november. Pt went to [place] and had an XRAY which was normal. [...] it normally does. She was seen at [facility] on Monday had neck x-rays that were negative. She was put on Prednisone, muscle relaxers and Edwards. She does not feel like these are [...] hand over fingers 4 and 5, symmetric measurement technician strength Medical Decision Making Pt with atraumatic [...] Jose Rios Within 2 to [address] [place] [address] [employer] (1) Additional Instructions: Return to ED if [...] Diagnostic Results No qualifying data available. [facility] Comment on above: Result Comment: Elec tronically Signed By: Rosa Pearson DO\.br\Date and Time Signed: 01/01/19 15:55 EDT ED [...] pillow when you sleep. ? Only take uygk-xno-zyjmuhy or prescription medicines for pain, discomfort, or [...] Document Reviewed: 05/01/2012 ExitCare? Patient Information ?2015 ncyclo. This information is not intended to replace advice given to you by your health care provider. Make sure you discuss any questions you have with your health care provider. Return if you have any problems or concerns. Call Dr. Rios for a follow up appointment. [facility] ED Patient Summaryon 019 ED Patient Summary [place] [id number] Patient Discharge Instructions Person Information Name: DAVINA HARRIS Age: 33 Years Arrival Date: 01/01/2019 1:23 PM Discharge Diagnosis: 1:Cervical radicular pain Primary Care Physician: Jose Rios MD Provider Information Primary Provider: Rosa Pearson DO [facility] Counselor:None The exam and treatment you received in the Emergency Department were for an urgent problem and are not intended as complete care. It is important that you follow up with a doctor, nurse practitioner, or physician?s assistant film editor for ongoing care. If your symptoms become worse or you do not improve as expected and you are unable to reach your usual health care provider, you should return to the Emergency Department. We are available 24 hours a day. STEVENDAVINA Sergio has been given the following list of patient education materials, prescriptions and follow-up instructions: Follow-up Instructions: With: Address: When: Jose Rios [address] [place] [address] Business (1) Within 2 to [...] opioids can be used to help relieve hjtaesrx-tl-ngcwgj pain and are often prescribed following a [...] be struggling with addiction, tell your health school child care attendant and ask for guidance or call [facility] National Helpline at 8-612-139-QNEY. m Source: US Department of Health and Human Services/Center for Disease Control & Prevention [facility] Medications Given: Medication Dose Route [...] Information: Thank you for choosing [facility] Patient Education Materials: Cervical Radiculopathy Cervical [...] pillow when you sleep. ? Only take qcam-fzd-vdhgduf or prescription medicines for pain, discomfort, or [...] Document Reviewed: 05/01/2012 ExitCare? Patient Information ?2015 ncyclo. This information is not intended to replace [...] Address: When: Jose Rios [address] [place] [address] [facility] (1) Within 2 to 3 days Comments: Return to ED if symptoms worsen Prescriptions: Patient Signature Date Clinician/Nurse Signature Date 01/01/19 14:26:27 [facility] Vital Signs Date Time Vital Sign Value Performing Clinician Jossy richard 07-08-2024 13:24-0400 Body mass index (BMI) [Ratio] 30.21 kg/m2 Sarah SHELL Work Phone: [facility] 07-08-2024 13:24-0400 Body weight 79.83 kg Sarah SHELL Work Phone: [facility] 07-08-2024 13:24-0400 Diastolic blood pressure 68 mm[Hg] Sarah SHELL Work Phone: [facility] 07-08-2024 13:24-0400 Systolic blood pressure 106 mm[Hg] Sarah SHELL Work Phone: [facility] Healthcare Encounters Encounter Date Encounter Type Care Provider Facility Start: 09-03-2024 End: 09-03-2024 Telephone encounter Anca Moody LPN [facility] Start: 08-13-2024 End: 08-13-2024 Phys/qhp telephone evaluation 5-10 min Too Saxena DO Work Phone: [facility] Comment on above: Follow-up encounter involving medication; Nonintractable headache, unspecified chronicity pattern, unspecified headache type; Acne, unspecified acne type Start: 07-08-2024 End: 07-08-2024 Office outpatient visit 15 minutes Sarah SHELL Work Phone: [facility] Comment on above: Follow-up encounter involving medication; Encounter for weight management Start: 07-08-2024 End: 07-08-2024 ambulatory SARAH GOODRICH Not Available Start: 06-06-2024 End: 06-07-2024 Emergency department patient visit [facility] Start: 04-01-2024 End: 04-01-2024 ambulatory TOO SAXENA Not Available Start: 03-11-2024 End: 03-11-2024 Departed Referred Too Saxena Work Phone: [facility] Start: 03-11-2024 End: 03-11-2024 ambulatory Too Saxena [facility] Work Phone: Start: 03-04-2024 End: 03-04-2024 ambulatory SARAH GOODRICH Not Available Start: 02-19-2024 End: 02-19-2024 Emergency department patient visit NO PCP NO PCP [facility] Start: 02-07-2024 End: 02-07-2024 ambulatory TOO SAXENA Not Available Start: 01-10-2024 End: 01-10-2024 ambulatory RENETTA ARELLANO Not Available Start: 01-05-2024 End: 01-05-2024 ambulatory RENETTA BARNETTY Not Available Start: 01-03-2024 End: 01-03-2024 ambulatory TOO SAXENA Not Available Start: 01-03-2024 End: 01-03-2024 ambulatory [...] Not Available Start: 06-21-[address] YON Butt ility:H1 Start: 06-08-2022 End: 06-09-[address] YON MEYER Facility:H1 Start: 03-08-[address] YON Butt ility:[facility]1 Start: 02-15-2022 End: 02-16-[address] YON MEYER Facility:[facility]1 Start: 11-23-[address] YON Butt ility:[facility]1 Start: 10-11-2021 End: 10-14-2021 ambulatory YON MEYER [facility] Start: 10-11-2021 End: 10-13-2021 Subsequent hospital visit by physician Marina Cason [facility] MRI Comment on above: Brachial neuritis Procedures Date Procedure Procedure Detail Performing Clinician Start: 02-07-2024 Microscopic observat ion [Identifier] in Cervix by Cyto stain Sarah SHELL Work Phone: Start: 10-11-2021 Mri spinal canal cer vical w/o contrast stephanie Meyer MD Work Phone: Plan of Treatment Date Care Activity Detail Author Start: 02-06-2027 Screening for malign ant neoplasm of cervix [facility] Start: 10-07-2024 End: 10-07-2024 Patient encounter procedure 10/07/2024 11:30 AM EST Office Visit [facility] [address] [place] [address] Sarah Goodrich PA [address] [place], [place] [id number] [facility] Start: 09-16-2024 End: 09-16-2024 Patient encounter procedure 09/16/2024 10:20 AM EST Procedure Visit [facility] [address] [place] [address] Too Saxena DO [address] [place], [place] [id number] [facility] Start: 06-02-2024 Influenza vaccination Influenza Vacc ine (#1) [facility] Start: 06-02-2021 Influenza vaccination Flu vaccine (# 1) [facility] Start: 2015 Screening for malign ant neoplasm of cervix [facility] Start: 2006 Screening for malign ant neoplasm of cervix Pap smear [facility] Start: 2004 DTaP/Tdap/Td vaccine (1 - Tdap) DTaP/Tdap/Td vaccine (1 - Tdap) [facility] Start: 2000 HIV screening HIV screen [facility] Start: 1997 Depression Screen Depression Screen [facility] Start: 1991 Pneumococcal 0-64 ye ars Vaccine (1 of 2 - PPSV23) Pneumococcal 0-64 years Vaccine (1 of 2 - PPSV23) [facility] Start: 1990 COVID-19 Vaccine (1) COVID-19 Vaccin e (1) [facility] Start: 1986 Varicella vaccine (1 of 2 - 2-dose childhood series) Varicella vaccine (1 of 2 - 2-dose childhood series) [facility] Start: 1985 Hepatitis C screening [facility] Immunizations Immunization Date Immunization Notes Care Provider Fa viktor 07-06-2018 influenza virus vacc ine, unspecified formulation Sarah SHELL Work Phone: [facility] Payers Date Payer Category Payer Self-pay 2023 Medicaid [employer] [place] [employer] [id number] 2023-Present [address] [place] [id number] 2023 Medicaid (Managed Care) [employer] [id number] 2020 Private Health Insurance [id number] [id number]. [id number] 1985 Unknown [id number] 2.16.840.1.584718.3.579.2. 175 1985 Unknown [id number] 2.16.840.1.524449.3.579.2. 593 1985 Unknown [id number] 2.16.840.1.699989.3.579.2. 593 1985 Unknown [id number] 2.16.840.1.220841.3.579.2. 59 1985 Unknown [id number] 2.16.840.1.728943.3.579.2. 59 1985 Unknown [id number] 2.16.840.1.347074.3.579.2. 59 1985 Unknown [id number] 2.16.840.1.783111.3.579.2. 128 1985 Unknown [id number] 2.16840.1.858313.3.579.2. 1285 1985 Unknown [id number] 2.16840.1.759509.3.579.2. 1285 1985 Unknown [id number] 2.840.1.559708.3.579.2. 1258 1985 Unknown [id number] 2.16840.1.193143.3.579.2. 1258 1985 Unknown [id number] 2.840.1.051540.3.579.2. 1258 1985 Unknown [id number] 2.16840.1.973209.3.579.2. 1258 1985 Unknown [id number] 2.16840.1.496545.3.579.2. 1258 1985 Unknown [id number] 2.16840.1.966523.3.579.2. 1258 1985 Unknown [id number] 2.16840.1.282263.3.579.2. 1258 1985 Unknown [id number] 2.16.840.1.330870.3.579.2. 1258 1985 Unknown [id number] 2.16840.1.310444.3.579.2. 1258 1985 Unknown [id number] 2.16840.1.289493.3.579.2. 1259 1985 Unknown [id number] 2.16.840.1.905620.3.579.2. 9 1985 Unknown [id number] 2.16.840.1.053078.3.579.2. 9 1985 Unknown [id number] 2.16.840.1.724117.3.579.2. 1258 1985 Unknown [id number] 2.16.840.1.869842.3.579.2. 1258 1985 Unknown [id number] 2.16.840.1.820336.3.579.2. 9 1959 Self-pay [id number] 1959 Unknown [id number] 1.2.840.402417.1.13.239.2. 7.3.987153.315 Social History Date Type Detail Facility Start: 10-18-2015 End: 03-11-2024 Tobacco smoking status [facility] Smokes tobacco daily [facility] Phone: Start: 10-18-2015 End: 07-08-2024 Cigarettes smoked current (pack per day) - Reported 0.5 [facility] Phone: Start: 10-18-2015 Alcohol intake Current non-dr premium card cancellation clerk of alcohol (finding) [facility] Phone: Start: 1985 Sex Assigned At Female [facility] Start: 10-02-2018 End: 10-02-2021 History of tobacco use Cigarette Smoker [facility] Start: 03-11-2024 Tobacco use and exposure User of smokeless tobacco [facility] Start: 07-08-2024 Alcoholic beverage intake Ex-drinker (finding) [facility] Start: 07-08-2024 Tobacco use panel [facility] Start: 11-22-2023 Tobacco Comment Cutrently vape . Have not smoked cigarettes in 2 years [facility] Start: 11-22-2023 Alcohol Comment Every Monday [facility] Start: 11-14-2023 Gender identity Identifies as female gender (finding) [facility] Telephone encounter Note 09-03-2024 Telephone Encounter - Christin Sanchez - 09/03/2024 2:13 PM EST Note Date & Type Note Facility 09-03-2024 Telephone encount er Note PT called asking about PA status for Ubrelvy and samples. Advised pt nurse will review PA and call her back. Per nurse 2 sample boxes given to patient. She will parts picker in office. [facility] Note 09-03-2024 Telephone Encounter - Christin Sanchez - 09/03/2024 2:13 PM ESTTelephone Encounter - Anca Moody LPN - 09/03/2024 1:41 PM EST Note Date & Type Note Facility 09-03-2024 Miscellaneous Notes Formattin g of this note might be different from the original. PT called asking about PA status for Ubrelvy and samples. Advised pt nurse will review PA and call her back. Per nurse 2 sample boxes given to patient. She will parts picker in office. 1114 Patient called and LMOM that she would like to discuss medication for migraines and see what determination is on prior authorization. Nursing will reach out to patient to discuss after looking into PA. Anca Leiva LPN documented in this encounter [facility] Telephone encounter Note 09-03-2024 Telephone Encounter - Anca Moody LPN - 09/03/2024 1:41 PM EST Note Date & Type Note Facility 09-03-2024 Telephone encount er Note 1114 Patient called and LMOM that she would like to discuss medication for migraines and see what determination is on prior authorization. Nursing will reach out to patient to discuss after looking into PA. Anca Leiva LPN [facility] History of Present illness Narrative 08-13-2024 Amy Galeano, OPERATING ENGINEER APPRENTICE - 08/13/2024 2:40 PM EST Note Date & Type Note Facility 08-13-2024 History of Presen t illness Narrative Reason for Appointment: Patient ID: Davina Harris is a 39 y.o. female who presents for No chief complaint on file. Patient presents today via telephone call for a telehealth appointment. Patients Phone #: [phone] (mobile) Current Medications: has a current medication list which includes the following prescription(s): fluticasone, magnesium oxide, phentermine, and phentermine, and the following Facility-Administered Medications: levonorgestrel. Medical History: Active Ambulatory Problems Diagnosis Date Noted No Active Ambulatory Problems Resolved Ambulatory Problems Diagnosis Date Noted No Resolved Ambulatory Problems Past Medical History: Diagnosis Date Allergies Arthritis Kidney stones Migraines (CMS/[facility]) Neck strain 10/2021 Tear of meniscus of knee 11/2022 Family History Problem Relation Name Age of Onset Hypertension Mother Stroke Mother Rheumatologic disease Sister Guerda Benitez Osteoporosis Maternal Grandmother Linda Benitez Anesthesia problems Paternal Grandmother Luz Benitez Social History Tobacco Use Smoking status: Every Day Current packs/day: 0.00 Average packs/day: 0.3 packs/day for 3.0 years (0.8 ttl pk-yrs) Types: Cigarettes Start date: 2018 Last attempt to quit: 2021 Years since quittin.8 Smokeless tobacco: Current Tobacco comments: Cutrently vape. Have not smoked cigarettes in 2 years Vaping Use Vaping status: Every Day Substance Use Topics Alcohol use: Not Currently Alcohol/week: 1.0 standard drink of alcohol Types: 1 Shots of liquor per week Comment: Every Monday Drug use: Never Past Surgical History: Procedure Laterality Date CHOLECYSTECTOMY 2015 COLPOSCOPY 03/11/2024 LGSIL pap Allergies Allergen Reactions Ciprofloxacin Hcl Dizziness disoriented Ibuprofen Hives, Itching, Shortness of breath and Swelling Other Reaction(s): Unknown Other Reaction(s): Not available, Unknown Sumatriptan Anaphylaxis, Shortness of breath, Swelling and Unknown Other Reaction(s): throat swelling Other Reaction(s): Not available, Unknown Peanut Oil Peanut-Containing Drug Products Shrimp (Diagnostic) Shrimp Extract Sulfa Antibiotics Nausea And Vomiting and Rash Other Reaction(s): Unknown Sulfasalazine Rash Other reaction(s): Nausea And Vomiting Vitals: Estimated body mass index is 30.21 kg/m as calculated from the following: Height as of 04/01/24: 5' 4 . Weight as of 07/08/24: 176 lb. BP: No LMP recorded. Patient has had an implant. Assessment/Plan Encounter Diagnoses Name Primary? Follow-up encounter involving medication Nonintractable headache, unspecified chronicity pattern, unspecified headache type Pt was called to discuss medication- pt doing well with complaints of migraines. Discussed adding ubrelvy or nurtec, pt to find a PCP- will call Dr Mcclellan. Pt to parts picker samples of Nurtec. Pt has complaints of back acne and unable to cool down. Rx for cleocin cream and minocycline daily faxed to pharmacy. Today's telehealth visit consisted of spending 10 minutes talking to patient on the phone. Documented by Amy Galeano LPN on behalf of: Too Saxena DO documented in this encounter [facility] History of Present illness Narrative 07-08-2024 SUMAYA Corona - 07/08/2024 1:10 PM EDT Note Date & Type Note Facility 07-08-2024 History of Presen t illness Narrative Reason for Appointment: Patient ID: Davina Harris is a 39 y.o. female who presents for Migraine (Pt present today for f/up visit for migraines and weight management. Pt was seen on 04/01/2024 for 2nd Adipex visit. Pt lost total of 15 lbs in 2 months of doing Adipex. Pt was given rx for 90 days along with rx of Magnesium 400 mg tablets to begin taking for headaches/migraines. ) Patient presents today for Medication Follow Up appointment. MEDICATIONS Current Outpatient Medications Medication Instructions fluticasone (Flonase) 50 MCG/ACT nasal spray [place] 1 spray every day by intranasal route as needed for 5 days. magnesium oxide (MAG-OX) 400 mg, Oral, Daily phentermine (ADIPEX-P) 37.5 mg, Oral, Daily before breakfast phentermine (ADIPEX-P) 37.5 mg, Oral, Daily before breakfast ALLERGIES Allergies Allergen Reactions Ciprofloxacin Hcl Dizziness disoriented Ibuprofen Hives, Itching, Shortness of breath and Swelling Other Reaction(s): Unknown Other Reaction(s): Not available, Unknown Sumatriptan Anaphylaxis, Shortness of breath, Swelling and Unknown Other Reaction(s): throat swelling Other Reaction(s): Not available, Unknown Peanut Oil Peanut-Containing Drug Products Shrimp (Diagnostic) Shrimp Extract Sulfa Antibiotics Nausea And Vomiting and Rash Other Reaction(s): Unknown Sulfasalazine Rash Other reaction(s): Nausea And Vomiting PROBLEMS Active Ambulatory Problems Diagnosis Date Noted No Active Ambulatory Problems Resolved Ambulatory Problems Diagnosis Date Noted No Resolved Ambulatory Problems Past Medical History: Diagnosis Date Allergies Arthritis Kidney stones Migraines (CMS/HCC) Neck strain 10/2021 Tear of meniscus of knee 11/2022 HISTORY PAST MEDICAL HISTORY SOCIAL HISTORY Past Medical History: Diagnosis Date Allergies Arthritis Kidney stones Migraines (CMS/HCC) Neck strain 10/2021 Tear of meniscus of knee 11/2022 Social History Tobacco Use Smoking status: Every Day Current packs/day: 0.00 Average packs/day: 0.3 packs/day for 3.0 years (0.8 ttl pk-yrs) Types: Cigarettes Start date: 2018 Last attempt to quit: 2021 Years since quittin.7 Smokeless tobacco: Current Tobacco comments: Cutrently vape. Have not smoked cigarettes in 2 years Vaping Use Vaping status: Every Day Substance Use Topics Alcohol use: Not Currently Alcohol/week: 1.0 standard drink of alcohol Types: 1 Shots of liquor per week Comment: Every Monday Drug use: Never FAMILY HISTORY Family History Problem Relation Name Age of Onset Hypertension Mother Stroke Mother Rheumatologic disease Sister Guerda Benitez Osteoporosis Maternal Grandmother Linda Benitez Anesthesia problems Paternal Grandmother Luz Benitez SURGICAL HISTORY Past Surgical History: Procedure Laterality Date CHOLECYSTECTOMY 2015 COLPOSCOPY 03/11/2024 LGSIL pap REVIEW OF SYSTEMS Review of Systems: Review of Systems Constitutional: Negative. HENT: Negative. Eyes: Negative. Respiratory: Negative. Cardiovascular: Negative. Gastrointestinal: Negative. Genitourinary: Negative. Musculoskeletal: Negative. Skin: Negative. Neurological: Negative. All other systems reviewed and are negative. Hematological: Negative. Endocrine: Negative. Allergic/Immunologic: Negative. OBJECTIVE Objective: Physical Exam Constitutional: Appearance: Normal appearance. She is normal weight. HENT: Head: Normocephalic. Cardiovascular: Rate and Rhythm: Normal rate. Pulses: Normal pulses. Pulmonary: Effort: Pulmonary effort is normal. Breath sounds: Normal breath sounds. Abdominal: Palpations: Abdomen is soft. Musculoskeletal: General: Normal range of motion. Neurological: General: No focal deficit present. Mental Status: She is alert and oriented to person, place, and time. Psychiatric: Mood and Affect: Mood normal. Behavior: Behavior normal. Thought Content: Thought content normal. Judgment: Judgment normal. Vitals and nursing note reviewed. Vitals: Estimated body mass index is 30.21 kg/m as calculated from the following: Height as of 04/01/24: 5' 4 . Weight as of this encounter: 176 lb. BP: 106/68 No LMP recorded (lmp unknown). Patient has had an implant. ASSESSMENT & PLAN ICD-10-CM 1. Follow-up encounter involving medication Z79.899 2. Encounter for weight management Z76.89 phentermine (Adipex-P) 37.5 MG tablet DISCONTINUED: phentermine (Adipex-P) 37.5 MG tablet Pt present today for her 6th Adipex visit. Pt is doing well with her weight loss on Adipex. Pt has lost a total of 26 lbs. Pt was given a 90 days rx of Adipex. Pt still having migraines and rx was not continued by patient. Pt is back on her migraine medication that was prescribed by her pcp and states she is doing better. Pt to return for an annual visit in a year. Documented by Bekah Dumas MA on behalf of: SUMAYA Corona documented in this encounter [facility] Consultation note 02-15-2022 Note Date & Type [...] activity. 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 Pushing, pulling, lifting, housework, folding, ADLs aggravate the pain. She also has low back pain; however, it depends on the weather. The patient states she is allergic to NSAID. It gives her hives. The patient currently takes Edwards 5/325 t.i.d.; has taken Zanaflex in the past as prescribed by Dr. Meyer. She also takes Fioricet for her headaches. The patient recently, in , had an MRI performed in [place]. Unfortunately, we do not have the report [...] the interim, should the patient need any Edwards refills, our plan would be to decrease the Edwards to b.i.d., subsequent to U-Tox. The patient understands and would like to proceed. CC: Yon Meyer D.O. [facility] Signed and Approved by: DR VLAD FERGUSON . 02/22/2022 12:21:00 [facility] Evaluation note Note Date & Type Note Facility Evaluation note Diagnosis Brachial neuritis Brachial neuritis or radiculitis nos documented in this encounter [facility] Work Phone: Evaluation note Note Date & Type Note Facility Evaluation note No assessment information availa [facility] Work Phone: Evaluation note Note Date & Type Note Facility Evaluation note Diagnosis Follow-up encounter involving medication Encounter for weight management documented in this encounter [facility] Evaluation note Note Date & Type Note Facility Evaluation note Diagnosis Follow-up encounter involving medication Nonintractable headache, unspecified chronicity pattern, unspecified headache type Acne, unspecified acne type documented in this encounter [facility] Summary Purpose Family History No Family History Records FoundNo Family History Records FoundNo Family History Records FoundNo Family History Records FoundNo Family History Records FoundNo Family History Records FoundNo Family History Records Found Advance Directives Documents on File Type Date Recorded Patient Network Coordinator Expl anation ACP-Advance Directive ACP-Power of Advertising Manager Reason for Referral Specialty Diagnoses / Procedures Referred By [place] nickerson Referred To Contact Radiology Diagnoses Brachial neuritis Procedures MRI CERVICAL SPINE WO CONTRAST [id number], [id number] Yon Meyer MD [address] [place], [place] [id number] Referral ID Status Reason Start Date Expiration Date Visits Re quested Visits Authorized [id number] Closed 10/04/2021 11/03/2021 1 1 Additional Source Comments INFORMATION SOURCE (unrecogn ized section and content) DATE CREATED AUTHOR 11/07/2019 [place] [facility] DATE CREATED AUTHOR AUTHOR'S ORGANIZ ATION 10/15/2021 [facility] DATE CREATED AUTHOR AUTHOR'S ORGANIZ ATION 06/04/2022 [facility] DATE CREATED AUTHOR AUTHOR'S ORGANIZ ATION 07/03/2022 [facility] DATE CREATED AUTHOR AUTHOR'S ORGANIZ ATION 03/15/2024 [facility] DATE CREATED AUTHOR AUTHOR'S ORGANIZ ATION 06/08/2024 [facility] DATE CREATED AUTHOR AUTHOR'S ORGANIZ ATION 07/09/2024 [facility] EPIC Reason for Visit (unrecogniz ed section and content) Specialty Diagnoses / Procedures Referred By [place] nickerson Referred To Contact Radiology Diagnoses Brachial neuritis Procedures MRI CERVICAL SPINE WO CONTRAST [id number], [phone] Yon Meyer MD [address] [place] [address] Referral ID Status Reason Start Date Expiration Date Visits Re quested Visits Authorized [id number] Closed 10/04/2021 11/03/2021 1 1 Reason Comments Migraine Pt present today for f/up visit for migraines and weight management. Pt was seen on 04/01/2024 for 2nd Adipex visit. Pt lost total of 15 lbs in 2 months of doing Adipex. Pt was given rx for 90 days along with rx of Magnesium 400 mg tablets to begin taking for headaches/migraines. Reason Comments Telehealth hormone issues Care Teams (unrecognized sec tion and content) Airplane Cleaner Relationship Specialty Start Date End Date Yon Meyer MD [address] [place] [id number] PCP - General Family Medicine 09/30/21 Team Status: Inactive Member Role Status Dates Too Saxena Attending Provider Active Start: 2023 End: March 11, 2024 Airplane Cleaner Relationship Specialty Start Date End Date Unallocated, Ques MD Lynda [address] [place] [address] PCP - General Family Medicine 11/22/23 Ramandeep Carrasco NP [address] [facility] [address] [place] [address] PCP - [facility] 04/01/24 Airplane Cleaner Relationship Specialty Start Date End Date Unallocated, Juan Howell MD [address] [place] [address] PCP - General Family Medicine 11/22/23 Ramandeep Carrasco, [employer]LECT[employer]TACTS ADJUSTER [address] [facility] [address] [place] [address] [facility] - [facility] 04/01/24 Airplane Cleaner Relationship Specialty Start Date End Date Unallocated, Noms Provider, [place] [address] PCP - [facility] 11/22/23 Ramandeep Carrasco, ELECTRICAL CONTACTS ADJUSTER [address] [facility] [address] [place] [address] PCP - [facility] 04/01/24 Goals (unrecognized section and content) Goals may [...] BE BASED ON THE PRIMARY CLINICAL RECORDS. [facility] [employer] [facility]. provides no warranty or guarantee of the accuracy or completeness of information in this document.
--- NOTE | 2024-09-27 21:55 | XR_ITS ---
The [address] [address] Patient Name: DAVINA HARRIS MRN: [id number] date: 1985 Sex: F Assigned Patient Location: ER Current Patient Location: ER Accession/Order Number: [id number] Exam Date: 09/27/2024 22:00 Report Date: 09/27/2024 22:20 At the request of: WILL SHEEHAN Procedure: XR hand RT min 3V Exam: Radiographs: XR hand RT min 3V Reason for exam: Jammed fifth finger Comparison: None XR/XR hand RT min 3V IMPRESSION: Unremarkable right hand radiographs. Electronically authenticated by: MELBA RAMIREZ Date: 09/27/2024 22:20
--- NOTE | 2024-09-27 21:55 | ED_ITS ---
HPI HPI - Extremity Injury (Upper) General Chief Complaint: Extremity Injury, Upper Stated Complaint: HAND INJURY Time Seen by Provider: 09/27/24 21:53 Source: patient Mode of arrival: walk-in Limitations: no limitations History of Present Illness HPI narrative: 39-year-old female presents for right fifth finger pain. She injured it by jamming it and then it got bent ulnarly. The pain is moderate and it is worse when she bends it. Related Data Previous Rx's ?Medication ?Instructions ?Recorded dicyclomine 10 mg capsule 10 mg PO QID PRN abdominal pain 07/05/23 #20 caps Allergies Allergy/AdvReac Type Severity Reaction Status Date / Time sumatriptan (From Imitrex) Allergy Severe Anaphylaxis Verified 09/27/24 21:47 ibuprofen (From Motrin) Allergy Hives Verified 09/27/24 21:47 Sulfa (Sulfonamide Allergy Hives Verified 09/27/24 21:47 Antibiotics) Opioid HPI Opioid Management Most Recent Pain and Opioid Data: No Data to Display Review of Systems ROS Narrative A ten point review of systems is negative except as noted above. PFSH PFSH Social History Little interest or pleasure in doing things: not at all Feeling down, depressed, or hopeless: not at all Exam Narrative Exam Narrative: Nurses note and vital signs reviewed and patient is not hypoxic. General: The patient appears well and in no apparent distress. Patient is resting comfortably on cart. Skin: Warm, dry, no pallor noted. There is no rash noted. Head: Normocephalic, atraumatic Eye: Normal conjunctiva, no drainage Ears, Nose, Mouth, and Throat: oral mucosa is moist. Nares patent. Cardiovascular: Regular Rate and Rhythm Respiratory: Patient is in no distress, no accessory muscle use Back: non-tender GI: Soft and nontender Musculoskeletal: The right hand is examined. The thumb, index, middle, and ring fingers are all nontender and have good range of motion. The fifth finger has some slight swelling at the PIP joint but all joints seem to have good range of motion. Skin intact. No bruising or abrasion Neurological: A&O, normal speech Psychiatric: Cooperative Constitutional Vital Signs, click to edit/add: Last Vital Signs Temp 98.1 F 09/27/24 21:47 Pulse 84 09/27/24 21:47 Resp 18 09/27/24 21:47 BP 146/76 H 09/27/24 21:47 Pulse Ox 99 09/27/24 21:47 O2 Del Method Room Air 09/27/24 21:47 Course Vital Signs Vital signs: Vital Signs Temperature 98.1 F 09/27/24 21:47 Pulse Rate 84 09/27/24 21:47 Respiratory Rate 18 09/27/24 21:47 Blood Pressure 146/76 H 09/27/24 21:47 Pulse Oximetry 99 09/27/24 21:47 Oxygen Delivery Method Room Air 09/27/24 21:47 Temperature 98.1 F 09/27/24 21:47 Pulse Rate 84 09/27/24 21:47 Respiratory Rate 18 09/27/24 21:47 Blood Pressure 146/76 H 09/27/24 21:47 Pulse Oximetry 99 09/27/24 21:47 Oxygen Delivery Method Room Air 09/27/24 21:47 MDM - Extremity Injury (Upper) MDM Narrative Medical decision making narrative: X-ray is negative. Splint applied, application checked by me and found to be appropriate, she is neurovascularly intact. Treatment diagnosis and follow-up were discussed with the patient. Differential Diagnosis Differential diagnosis: Likely other (Finger sprain, finger fracture) Imaging Data Right hand x-ray: Radiologist's impression: ITS Impressions Hand X-Ray 09/27/24 21:55 IMPRESSION: Unremarkable right hand radiographs. Electronically authenticated by: MELBA RAMIREZ Date: 09/27/2024 22:20 Discharge Plan Discharge Chief Complaint: Extremity Injury, Upper Clinical Impression: Finger sprain Patient Disposition: Home, Self-Care Time of Disposition Decision: 22:24 Prescriptions / Home Meds: No Action dicyclomine 10 mg capsule 10 mg PO QID PRN (Reason: abdominal pain) Qty: 20 0RF Print Language: Latvian Instructions: Finger Sprain (ED) Referrals: RACHEL KUHN [Primary Care Provider] - 1 week
--- NOTE | 2024-09-27 21:55 | PC.NURSE ---
Hit lateral R hand against the sink. Has Pain in the PIP area of the 5th digit.
--- NOTE | 2024-09-27 22:03 | PC.NURSE ---
XR in room.
== END 2024-09-27 22:38 | disposition home or self-care (01) ==
PROVIDERS: Emergency Provider Emergency Medicine; PCP Family Medicine
DX: S63.616A Unspecified sprain of right little finger, initial encounter (principal); X58.XXXA Exposure to other specified factors, initial encounter
CPT/HCPCS: 29130; 73130; 99283

== ENCOUNTER 2024-11-18 06:47 | Emergency (ER) | payer OTHER, SELFPAY ==
--- OUTSIDE RECORDS SUMMARY | 2024-11-18 07:02 | XMS_ITS | CCD ---
Author Organization [facility] Care Team Providers Care Alcoholism Worker Name Role Phone Yon Meyer MD Primary [...] MEYER, DR YON Giang Primary Care Unavailable PHYLLIS, DR VLAD Gasca Admitting Unavailable FERGUSON, DR VLAD Gasca Attending Unavailable MEYER, DR YON Giang Consulting Unavailable MEYER, DR YON Giang Primary Care Unavailable FERGUSON, DR VLAD Gasca Admitting Unavailable FERGUSON, DR VLAD Gasca Attending Unavailable Too Saxena Attending Provider [phone] Too Saxena Attending Unavailable Too Saxena Admitting Unavailable NO PCP, NO PCP Primary Care Unavailable SABIHA PORTILLO Attending Unavailable NO PCP, NO PCP Primary Care Unavailable VLADIMIR BRANTLEY Attending Unavailable VLADIMIR BRANTLEY Referring Unavailable NO PCP, NO PCP Primary Care Unavailable Unallocated , Noms Provider Primary Care Provi irina Ramandeep Carrasco NP Unavailable RAMANDEEP CARRASCO Attending Unavailable APLRAMANDEEP KIRK Referring Unavailable APLRAMANDEEP KIRK Attending Unavailable APLRAMANDEEP KIRK Attending Unavailable MARY MANRIQUEZ Attending Unavailable RAMANDEEP CARRASCO Referring Unavailable BRIAN GUTIERREZ Attending Unavailable APLRAMANDEEP KIRK Referring Unavailable RENETTA ARELLANO Attending Unavailable RAMANDEEP CARRASCO Referring Unavailable NICOLE, TOO Attending Unavailable ADAN, REENTTA Attending Unavailable APLINGRAMANDEEP Referring Unavailable RENETTA ARELLANO Attending Unavailable APLRAMANDEEP KIRK Referring Unavailable NICOLE, TOO Attending Unavailable JOLEEN, SARAH Attending Unavailable NICOLE, TOO Attending Unavailable NICOLE, TOO Attending Unavailable JOLEEN, SARAH Attending Unavailable JOLEEN, SARAH Attending Unavailable Allergies Allergy Classification Reported Allergen(s) Allergy Type Date of Onset Reaction(s) Facility (9 sources) Sulfonamides (Antibiotic) Propensity to adverse reactions to drug 10-18-19 16 Nausea And Vomiting, Rash [facility] [employer] Work Phone: (10 sources) SUMAtriptan; Translations: [SUMATRIPTAN] Drug Allergy 10-18-19 16 Swelling, Anaphylaxis, Shortness of breath, Unknown [facility] (2 sources) Ciprofloxacin Drug Allergy 07-24-[address] [facility] (2 sources) Ibuprofen Drug Allergy 04-25-[address] [facility] (2 sources) Plasmin Drug Allergy 04-25-[address] [facility] (9 sources) Ciprofloxacin; Translations: [CIPROFLOXACIN HCL] Drug Allergy 10-11-19 17 Dizziness [facility] Rep[facility] (9 sources) Ibuprofen; Translations: [IBUPROFEN] Drug Allergy 10-11-19 17 Hives, Itching, Shortness of breath, Swelling [facility] (1 source) peanut allergenic extract; Translations: [PEANUT] Drug Allergy 02-19-20 [facility] (1 source) Shrimp product; Translations: [SHRIMP] Propensity to adverse reactions to food (disorder) 02-19-20 24 [facility] (9 sources) sulfaSALAzine; Translations: [SULFASALAZINE] Drug Allergy 10-11-19 17 Rash [facility] (8 sources) Peanut oil Propensity to adverse reactions 11-22-19 [facility] (8 sources) Shrimp product Propensity to adverse reactions 11-22-19 24 [facility] (8 sources) Shrimp product Propensity to adverse reactions 02-19-20 [facility] (8 sources) Peanut-Containing Drug Products Drug Intolerance 02-19-20 24 [facility] Medications Current Medications Medication Drug Class(es) Dates Sig (Normalized) Sig (Original) cetirizine hydrochloride 10 mg oral tablet (1 source) Histamine-1 Receptor Antagonist take 1 tablet by mouth once daily cetirizine (ZYRTEC) 10 MG tablet Take 10 mg by mouth daily 0 Active clindamycin 10 mg/ml topical lotion (6 sources) Lincosamide Antibacterial Start: 08-13-2024 End: 08-13-2025 clindamycin (Cleocin-T) 1 % lotion Indications: Acne, unspecified acne type Apply topically 2 (two) times a day 60 mL 1 08/13/2024 08/13/2025 Active fluticasone propionate 0.05 mg/actuat metered dose nasal spray (8 sources) Corticosteroid fluticasone (Flonase) 50 MCG/ACT nasal spray [place] 1 spray every day by intranasal route as needed for 5 days. Active levonorgestrel 0.586340 mg/hr intrauterine system (8 sources) Progestin, Progestin-containing Intrauterine Device Start: 01-03-2024 Levonorgestrel intrauterine device magnesium oxide 400 mg oral tablet (8 sources) Start: 04-01-2024 End: 10-28-2024 take 1 tablet by mouth once daily magnesium oxide (Mag-Ox) 400 MG tablet Indications: Nonintractable headache, unspecified chronicity pattern, unspecified headache type Take 1 tablet (400 mg) by mouth Daily 30 tablet 6 04/01/2024 10/28/2024 Active minocycline 50 mg oral tablet (6 sources) Tetracycline-class Drug Start: 08-13-2024 End: 10-12-2024 [...] Active phentermine hydrochloride 37.5 mg oral tablet (20 sources) Sympathomimetic Amine Anorectic Start: 04-01-2024 End: 11-06-2024 take 1 tablet by mouth before mealtime phentermine (Adipex-P) 37.5 MG tablet Indications: Encounter for weight management Take 1 tablet (37.5 mg) by mouth in the morning. Take before meals. 30 tablet 1 10/07/2024 11/06/2024 Active tiZANidine 2 mg oral tablet (1 source) Central alpha-2 Adrenergic Agonist take 1 tablet by mouth every six hours as needed tiZANidine (ZANAFLEX) 2 MG tablet Take 2 mg by mouth every 6 hours as needed 0 Active ubrogepant 50 mg oral tablet (4 sources) Start: 08-28-2024 Ubrogepant (Ubrelvy) 50 MG tablet Indications: Nonintractable headache, unspecified chronicity pattern, unspecified headache type Take 1 tablet by mouth if needed (Take 1 PO every other day PRN) for up to 10 doses 10 tablet 1 08/28/2024 Active Problems Active Problems Problem Classification Problem Date Documented Date Episodic/Chronic Administrative/social admission (8 sources) Patient encounter status; Translations: [Persons encountering [...] Other spondylosis with radiculopathy, cervical region; Translations: [[facility] SPONDYLS RADICULOPATHY CERV RGN] Onset: 02-15-2022 Chronic [...] Hansel Sterling MD on 06/06/2024 3:09 PM [facility] 03-11-2024 L Specimen: [id number] Received: 03/12/24 Status: ASHLEY Mora Num: [id number] Spec Type: Surgical Subm Dr: Too Saxena Tissues: A Endocervix - Curettings (ECC) Procedures: HE/2, Gross/Micro L4 Age/ Patient Sex Location Account Attending Physician StevenDavina 38/F [place] [id number] Too Saxena SPEC NUM: [id number] RECD: 03/12/24 STATUS: ASHLEY MORA NUM: [id number] MARTA: 03/11/24- SUBM DR: Too Saxena ENTERED: 03/12/24 [facility] DR: Priyank,Lab SPEC TYPE: Surgical DEPT: RUCHI [...] mucus, entirely submitted in A1. CPT Codes 56750 -------- -------- Specimen: [id number] Received: 03/12/24 Status: ASHLEY Mora Num: [id number] Spec Type: Surgical Subm Dr: Too Saxena Tissues: A Endocervix - Curettings (ECC) Procedures: KEV/Sonam Mondragon/Riddhi L4 -------- Patient: Davina Harris [id number] (Continued) -------- Signed (signature on file) Lizzy Montero MD 03/13/24 1514 Normal [facility] MR KNEE LEFT WO IV [...] BASOPHIL 0.04 x10^3ul Normal (0.00 - 0.16) [facility] Comment on above: Order Comment: FACIL ITY: [facility] [id number] Performed By: #### C BC/D, CHEM-C, TSHT34, GLYCO+, B12+, MG #### [facility] [address] [facility], [address] ABS EOSINOPHIL 0.14 x10^3ul Normal (0.00 - 0.40) [facility] Comment on above: Order Comment: FACIL ITY: [facility] [id number] Performed By: #### C BC/D, CHEM-C, TSHT34, GLYCO+, B12+, MG #### [facility] [address] [facility], [id number] ABS IMMATURE GRANS 0.01 x10^3ul Normal (0.00 - 0.11) [facility] Comment on above: Order Comment: FACIL ITY: [facility] [id number] Performed By: #### C BC/D, CHEM-C, TSHT34, GLYCO+, B12+, MG #### [facility] [address] [place], [address] ABS LYMPHOCYTE 1.45 x10^3ul Normal (0.96 - 5.40) [facility] Comment on above: Order Comment: FACIL ITY: [facility] [id number] Performed By: #### C BC/D, CHEM-C, TSHT34, GLYCO+, B12+, MG #### [facility] [address] [place], [address] ABS MONOCYTE 0.65 x10^3ul Normal (0.10 - 1.00) [facility] on above: Order Comment: FACIL ITY: [facility] [id number] Performed By: #### C BC/D, CHEM-C, TSHT34, GLYCO+, B12+, MG #### [facility] [address] [place], [address] ABS NEUTROPHIL 4.72 x10^3ul Normal (1.50 - 7.00) [facility] Comment on above: Order Comment: FACIL ITY: [facility] [id number] Performed By: #### C BC/D, CHEM-C, TSHT34, GLYCO+, B12+, MG #### [facility] [address] [place], [address] Basophils/100 WBC (Bld) 0.6 % Normal () [facility] above: Order Comment: FACIL ITY: [facility] [id number] Performed By: #### C BC/D, CHEM-C, TSHT34, GLYCO+, B12+, MG #### [facility] [address] [place], [address] Eosinophils/100 WBC (Bld) 2.0 % Normal () [facility] Comment on above: Order Comment: [facility] [id number] Performed By: #### C BC/D, CHEM-C, TSHT34, GLYCO+, B12+, MG #### [place] [facility] [address] [place], [address] Hematocrit (Bld) [Volume fraction] 38.5 % Normal (37.0 - 47.0) [facility] Comment on above: Order Comment: FACIL ITY: [facility] [id number] Performed By: #### C BC/D, CHEM-C, TSHT34, GLYCO+, B12+, MG #### [facility] [address] [place], [address] Hemoglobin (Bld) [Mass/Vol] 12.5 g/dL Normal (12.0 - 16.0) [facility] Comment on above: Order Comment: FACIL ITY: [facility] [id number] Performed By: #### C BC/D, CHEM-C, TSHT34, GLYCO+, B12+, MG #### [facility] [address] [place], [address] IMMATURE GRANS (IG) 0.1 % Normal () [facility] Comment on above: Order Comment: FACIL ITY: [facility] [id number] Performed By: #### C BC/D, CHEM-C, TSHT34, GLYCO+, B12+, MG #### [facility] [address] [place], [address] LYMPS 20.7 % Normal () [facility] Comment on above: Order Comment: [facility] [id number] Performed By: #### C BC/D, CHEM-C, TSHT34, GLYCO+, B12+, MG #### [facility] [address] [place], [address] MCH (RBC) [Entitic mass] 28.9 pg Normal (27.0 - 33.0) [facility] Comment on above: Order Comment: [facility] [id number] Performed By: #### C BC/D, CHEM-C, TSHT34, GLYCO+, B12+, MG #### [facility] [address] [place], [address] MCHC (RBC) [Mass/Vol] 32.5 g/dL Normal (30.0 - 37.0) [facility] Comment on above: Order Comment: [facility]IL ITY[facility] [id number] Performed By: #### C BC/D, CHEM-C, TSHT34, GLYCO+, B12+, MG #### [facility] [address] [place], [address] MCV (RBC) [Entitic vol] 89.1 fL Normal (81.0 - 99.0) [facility] Comment on above: Order Comment: [facility]IL ITY[facility] [id number] Performed By: #### C BC/D, CHEM-C, TSHT34, GLYCO+, B12+, MG #### [facility] [address] [place], [address] MONOS 9.3 % Normal () [facility] Comment on above: Order Comment: FACIL ITY: [facility] [id number] Performed By: #### C BC/D, CHEM-C, TSHT34, GLYCO+, B12+, MG #### [facility] [address] [place], [address] PLT 255 x10^3ul Normal (130 - 400) [facility] Comment on above: Order Comment: FACIL ITY: [facility] [id number] Performed By: #### C BC/D, CHEM-C, TSHT34, GLYCO+, B12+, MG #### [place] [address] [place], [address] RBC 4.32 x10^6ul Normal (4.20 - 5.40) [facility] Comment on above: Order Comment: FACIL ITY: [facility] [id number] Performed By: #### C BC/D, CHEM-C, TSHT34, GLYCO+, B12+, MG #### [facility] [address] [place], [address] RDW-SD 43.2 fl Normal (37.0 - 49.0) [facility] Comment on above: Order Comment: FACIL ITY: [facility] [id number] Performed By: #### C BC/D, CHEM-C, TSHT34, GLYCO+, B12+, MG #### [place] [address] [place], [address] SEGS 67.3 % Normal () [facility] Comment on above: Order Comment: FACIL ITY: [facility] [id number] Performed By: #### C BC/D, CHEM-C, TSHT34, GLYCO+, B12+, MG #### [facility] [address] [place], [address] WBC 7.02 x10^3ul Normal (3.80 - 10.60) [facility] Comment on above: Order Comment: FACIL ITY: [facility] [id number] Performed By: #### C BC/D, CHEM-C, TSHT34, GLYCO+, B12+, MG #### [facility] [address] [place], [address] COMP METABOLIC PANEL W/GFRon 06-03-2022 Albumin [Mass/Vol] 5.2 g/dL High (3.5 - 5.0) [facility] Comment on above: Performed By: #### C BC/D, CHEM-C, TSHT34, GLYCO+, B12+, MG #### [facility] [address] [place], [address] ALK PHOS 58 U/L Normal (38 - 126) [place] [facility] Comment on above: Performed By: #### C BC/D, CHEM-C, TSHT34, GLYCO+, B12+, MG #### [facility] [address] [place], [address] ALT [Catalytic activity/Vol] 31 U/L Normal (1 - 35) [place] [facility] Comment on above: Performed By: #### C BC/D, CHEM-C, TSHT34, GLYCO+, B12+, MG #### [place] [facility] [address] [place], [address] AST [Catalytic activity/Vol] 28 U/L Normal (15 - 46) [facility] Comment on above: Performed By: #### C BC/D, CHEM-C, TSHT34, GLYCO+, B12+, MG #### [place] [facility] [address] [place], [address] Bilirubin [Mass/Vol] 0.6 mg/dL Normal (0.2 - 1.3) [facility] Comment on above: Performed By: #### C BC/D, CHEM-C, TSHT34, GLYCO+, B12+, MG #### [place] [facility] [address] [place], [address] Calcium [Mass/Vol] 9.8 mg/dL Normal (8.6 - 10.6) [facility] Comment on above: Performed By: #### C BC/D, CHEM-C, TSHT34, GLYCO+, B12+, MG #### [facility] [address] [place], [address] Chloride [Moles/Vol] 108 mmol/L High (98 - 107) [facility] Comment on above: Performed By: #### C BC/D, CHEM-C, TSHT34, GLYCO+, B12+, MG #### [facility] [address] [place], [address] CO2 [Moles/Vol] 25 mmol/L Normal (22 - 30) [facility] Comment on above: Performed By: #### C BC/D, CHEM-C, TSHT34, GLYCO+, B12+, MG #### [facility] [address] [place], [address] Creatinine [Mass/Vol] 0.70 mg/dL Normal (0.52 - 1.04) [facility] Comment on above: Performed By: #### C BC/D, CHEM-C, TSHT34, GLYCO+, B12+, MG #### [facility] [address] [place], [address] GFR- AMER 113.9 ML/M1.7 Normal (60.0 - 140.1) [facility] Comment on above: Performed By: #### C BC/D, CHEM-C, TSHT34, GLYCO+, B12+, MG #### [facility] [address] [place], [address] GFR-NON AFRIC-AMER 94.2 ML/M1.7 Normal (60.0 - 115.8) [facility] Comment on above: Performed By: #### C BC/D, CHEM-C, TSHT34, GLYCO+, B12+, MG #### [facility] [address] [place], [address] Glucose [Mass/Vol] 95 mg/dL Normal (74 - 106) [facility] Comment on above: Performed By: #### C BC/D, CHEM-C, TSHT34, GLYCO+, B12+, MG #### [facility] [address] [place], [address] Potassium [Moles/Vol] 5.4 mmol/L High (3.5 - 5.1) [facility] Comment on above: Performed By: #### C BC/D, CHEM-C, TSHT34, GLYCO+, B12+, MG #### [place] [facility] [address] [place], [address] Protein [Mass/Vol] 7.6 g/dL Normal (6.3 - 8.2) [facility]: Performed By: #### C BC/D, CHEM-C, TSHT34, GLYCO+, B12+, MG #### [facility] [address] [place], [address] Sodium [Moles/Vol] 142 mmol/L Normal (137 - 145) [facility] Comment [facility] above: Performed By: #### C BC/D, CHEM-C, TSHT34, GLYCO+, B12+, MG #### [facility] [address] [place], [address] Urea nitrogen [Mass/Vol] 14 mg/dL Normal (7 - 17) [facility] Comment on above: Performed By: #### C BC/D, CHEM-C, TSHT34, GLYCO+, B12+, MG #### [facility] [address] [place], [address] GLYCO A1C AND AVG GLUon 09-0 2-2021 Glucose [Mass/Vol] 117 mg/dL Normal (60 - 140) [facility] Comment on above: Result Comment: AVER AGE BLOOD GLUCOSE CALCULATED USING GLYCO A1C VALUE: THE [employer] [place] RECOMMENDED REFERENCE RANGES: NORMAL <= 5.6 % PRE-DIABETES 5.7 - 6.4 % (HIGH RISK FOR DEVELOPING DIABETES) DIABETES >= 6.5 % Performed By: #### C BC/D, CHEM-C, TSHT34, GLYCO+, B12+, MG #### [facility] [address] [place], [address] HbA1c (Bld) [Mass fraction] 5.7 % Normal (4.4 - 6.4) [facility] Comment on above: Performed By: #### C BC/D, CHEM-C, TSHT34, GLYCO+, B12+, MG #### [facility] [address] [place], [address] MAGNESIUMon 06-03-2022 Magnesium [Mass/Vol] 2.4 mg/dL High (1.6 - 2.3) [facility] on above: Performed By: #### C BC/D, CHEM-C, TSHT34, GLYCO+, B12+, MG #### [place] [facility] [address] [place], [address] T3 FREE, T4 FREE AND TSHon 0 06-03-2022 Free T3 [Mass/Vol] 4.32 pg/mL Normal (2.32 - 6.09) [facility] Comment on above: Performed By: #### C BC/D, CHEM-C, TSHT34, GLYCO+, B12+, MG #### [facility] [address] [place], [address] Free T4 [Mass/Vol] 1.10 ng/dL Normal (0.78 - 2.35) [facility] Comment on above: Performed By: #### C BC/D, CHEM-C, TSHT34, GLYCO+, B12+, MG #### [facility] [address] [place], [address] TSH Qn 1.05 m[IU]/L Normal (0.470 - 4.680) [facility] Comment on above: Performed By: #### C BC/D, CHEM-C, TSHT34, GLYCO+, B12+, MG #### [facility] [address] [place], [address] VIT B12 AND FOLATEon 022 Cobalamin (Vitamin B12) [Mass/Vol] 366 pg/mL Normal (239 - 931) [facility] Comment on above: Performed By: #### C BC/D, CHEM-C, TSHT34, GLYCO+, B12+, MG #### [place] [facility] [address] [place], [address] FOLIC ACID 5.3 NG/ML Normal (2.8 - 20.0) [facility] Comment on above: Performed By: #### C BC/D, CHEM-C, TSHT34, GLYCO+, B12+, MG #### [facility] [address] [facility], [address] MRI CERVICAL SPINE WO CONTRA STon 10-11-2021 [...] Patrice Mcbride DO 10/11/21 Final result Normal [facility] 1. C5-C6 central/right paracentral inferiorly migrating disc extrusion mildly narrows the spinal canal. 2. No severe spinal canal stenosis or cord compression at any level in the cervical spine. 3. No significant cervical spine neural foraminal narrowing. RECOMMENDATIONS: Unavailable [facility] EXAMINATION: MRI OF THE CERVICAL SPINE [...] spinal canal stenosis or neural foraminal narrowing. [facility] Reed, DO Patrice - 10/11/2021 EXAMINATION: MRI OF THE CERVICAL [...] cervical spine neural foraminal narrowing. RECOMMENDATIONS: Unavailable [employer] Phone: Radiology Study observation (narrative) [employer] Phone: MRI CERVICAL SPINE WO CONTRA STOrdered By: Patrice Mcbride on 10-11-2021 [employer] Phone: Coding Summary.on 01-28-2019 Coding Summary. CODING DATE: 01/28/2019 [facility] STATUS: Home (Routine DC) PAYOR: Medicaid [...] Saved: 01/28/2019 11:18 am Normal [facility] XR Ankle 3+ Views Lefton XR Ankle [...] M.D. Transcribed by: miguel a Technologist: JOSE [facility] Coding Summary.on 01-06-2019 Coding Summary. CODING DATE: 01/06/2019 FINAL [facility] STATUS: Home (Routine DC) PAYOR: Medicaid [facility] DESCRIPTION 0527 PERIPHERAL NERVE DIAGNOSES ADMIT DX: [...] Rai Revised Date Saved: 01/06/2019 03:17 pm [facility] ED Clinical Summaryon 2018 ED Clinical Summary [place] [id number] ED Clinical Summary Person Information Name: DAVINA HARRIS [place] Age: 33 Years : 1985 12:00 AM Sex: Female Language: Greenlandic PCP: Jose Rios MD Marital Status: Single Phone: [phone] Visit Id: Visit Reason: Arm pain-swelling; RT [...] 01/01/2019 2:26 PM 01/01/2019 2:26 PM ADDRESS: [address] [place] [phone] PHYS DOC NOTES: MEDICAL INFORMATION: Prescriptions Given: PATIENT EDUCATION INFORMATION: Instructions: Cervical Radiculopathy Follow up: With: Address: When: Jose Rios [address] [place] [address] Business ([address] Within 2 to 3 days Comments: Return to ED if symptoms worsen DIAGNOSIS: 1:Cervical radicular pain Normal [facility] ED Note-Physicianon 01-02-20 ED Note-Physician Basic Information Time Seen: Rosa Pearson DO 01/01/2019 13:26 Chief Complaint Pt states she has had pain, numbness, and tingling in her right arm since mid-november. Pt went to [place] and had an XRAY which was normal. [...] it normally does. She was seen at [facility] on Monday had neck x-rays that were negative. She was put on Prednisone, muscle relaxers and [place]. She does not feel like these are [...] hand over fingers 4 and 5, symmetric community health advisor strength Medical Decision Making Pt with atraumatic [...] Jose Rios Within 2 to 3 days [place] [address] Purple Binder (1) Additional Instructions: Return to ED if [...] No qualifying data available. Normal [facility] Comment on above: Result Comment: Elec tronically [...] pillow when you sleep. ? Only take hxkn-bvw-sfvmaao or prescription medicines for pain, discomfort, or [...] Document Reviewed: 05/01/2012 ExitCare? Patient Information ?2015 [employer]. This information is not intended to replace advice given to you by your health care provider. Make sure you discuss any questions you have with your health care provider. Return if you have any problems or concerns. Call Dr. Rios for a follow up appointment. Normal [facility] ED Patient Summaryon 019 ED Patient Summary [place] [id number] Patient Discharge Instructions Person Information Name: DAVINA HARRIS Age: 33 Years Arrival Date: 01/01/2019 1:23 PM Discharge Diagnosis: 1:Cervical radicular pain Primary Care Physician: Jose Rios MD Provider Information Primary Provider: Rosa Pearson DO Advanced Shadowgraph Operator:None The exam and treatment you received in the Emergency Department were for an urgent problem and are not intended as complete care. It is important that you follow up with a doctor, nurse practitioner, or physician?s respiratory care assistant for ongoing care. If your symptoms become [...] Address: When: Jose Rios [address] [place] [id number] Business (1) Within 2 to 3 days [...] opioids can be used to help relieve qdddmdak-iv-trklro pain and are often prescribed following a [...] be struggling with addiction, tell your health customer care associate and ask for guidance or call [facility] National Helpline at 6-649-327-PGJN. i Source: US Department of Health and Human Services/Center for Disease Control & Prevention [facility] Medications Given: Medication Dose Route [...] Comment: Pharmacy Information: Thank you for choosing [facility] Patient Education Materials: Cervical Radiculopathy Cervical radiculopathy [...] pillow when you sleep. ? Only take gdiz-lot-rydmtob or prescription medicines for pain, discomfort, or [...] Document Reviewed: 05/01/2012 ExitCare? Patient Information ?2015 [employer]. This information is not intended to replace [...] Follow-up Instructions: With: Address: When: [address] [place] [place] [address] [facility] (1) Within 2 to 3 days Comments: Return to ED if symptoms worsen Prescriptions: Patient Signature Date Clinician/Nurse Signature Date 01/01/19 14:26:27 Normal [facility] Vital Signs Date Time Vital Sign Value Performing Clinician Jossy richard 07-08-2024 13:24-0400 Body mass index (BMI) [Ratio] 30.21 kg/m2 Sarah SHELL Work Phone: [facility] 07-08-2024 13:24-0400 Body weight 79.83 kg Sarah SHELL Work Phone: [facility] 07-08-2024 13:24-0400 Diastolic blood pressure 68 mm[Hg] Sarah SHELL Work Phone: [facility] 07-08-2024 13:24-040 Systolic blood pressure 106 mm[Hg] Sarah SHELL Work Phone: [facility] Encounters Encounter Date Encounter Type Care Provider Facility Start: 10-07-2024 End: 10-07-2024 Bamboo flowsheet Sarah SHELL Work Phone: [facility] Start: 10-07-2024 End: 10-07-2024 Bamboo flowsheet Sarah SHELL Work Phone: [facility] Start: 10-07-2024 End: 10-07-2024 Office outpatient visit 15 minutes Sarah SHELL Work Phone: [facility] Comment on above: Encounter for weight management (Primary Dx) Start: 10-07-2024 End: 10-07-2024 ambulatory SARAH GOODRICH Not Available Start: 09-03-2024 End: 09-03-2024 Telephone encounter Anca Moody LPN [facility] Start: 08-13-2024 End: 08-13-2024 Phys/qhp telephone evaluation 5-10 min Too Saxena DO Work Phone: [facility] Comment on above: Follow-up encounter involving medication; Nonintractable headache, unspecified chronicity pattern, unspecified headache type; Acne, unspecified acne type Start: 07-08-2024 End: 07-08-2024 Office outpatient visit 15 minutes Sarah SHELL Work Phone: [facility] Comment on above: Follow-up encounter involving medication; Encounter for weight management Start: 07-08-2024 End: 07-08-2024 ambulatory SARAH JOLEEN Not Available Start: 06-06-2024 End: 06-07-2024 Emergency department patient visit VLADIMIR BRANTLEY [facility] Start: 04-01-2024 End: 04-01-2024 ambulatory TOO RECINOSO Not Available Start: 03-11-2024 End: 03-11-2024 Departed Referred Too Saxena Work Phone: [facility] Start: 03-11-2024 End: 03-11-2024 ambulatory Too Saxena [facility] Work Phone: Start: 03-04-2024 End: 03-04-2024 ambulatory SARAH GOODRICH Not Available Start: 02-19-2024 End: 02-19-2024 Emergency department patient visit NO PCP NO PCP [facility] Start: 02-07-2024 End: 02-07-2024 ambulatory TOO NICOLE Not Available Start: 01-10-2024 End: 01-10-2024 ambulatory RENETTA BARNETTY Not Available Start: 01-05-2024 End: 01-05-2024 ambulatory RENETTA BARNETTY Not Available Start: 01-03-2024 End: 01-03-2024 ambulatory TOO NICOLE Not Available Start: 01-03-2024 End: 01-03-2024 ambulatory RENETTA BARNETTY Not Available Start: 12-27-2023 End: 12-27-2023 ambulatory BRIAN GUTIERREZ Not Available Start: 12-20-2023 End: 12-20-2023 ambulatory MARY MANRIQUEZ Not Available Start: 12-13-2023 End: 12-13-2023 ambulatory RAMANDEEP Etienne APLING Not Available Start: 11-29-2023 End: 11-29-2023 ambulatory RAMANDEEP Etienne APLING Not Available Start: 11-24-2023 End: 11-24-2023 ambulatory RAMANDEEP B APLING Not Available Start: 11-22-2023 End: 11-22-2023 ambulatory RAMANDEEP Etienne APLING Not Available Start: 06-21-[address] YON MEYER Fac ility:[facility] Start: 06-08-2022 End: 06-09-[address] YON MEYER Facility:[facility] Start: 03-08-[address] YON Butt ility:[facility] Start: 02-15-2022 End: 02-16-[address] YON MEYER Facility:[facility] Start: 11-23-[address] YON MEYER Fac ility:[facility] Start: 10-11-2021 End: 10-14-2021 ambulatory YON MEYER [facility] Start: 10-11-2021 End: 10-13-2021 Subsequent hospital visit by physician [facility] Mri [facility] MRI Comment on above: Brachial neuritis Procedures Date Procedure Procedure Detail Performing Clinician Start: 02-07-2024 Microscopic observat ion [Identifier] in Cervix by Cyto stain Sarah SHELL Work Phone: Start: 10-11-2021 Mri spinal canal cer vical w/o contrast matrl Yon Meyer MD Work Phone: Plan of Treatment Date Care Activity Detail Author Start: 02-06-2027 Screening for malign ant neoplasm of cervix [facility] Start: 10-07-2024 End: 10-07-2024 Patient encounter procedure 10/07/2024 11:30 AM EST Office Visit [facility] [address] [facility] [place] [address] Sarah Goodrich PA [address] [place], [place] [id number] [facility] Start: 09-16-2024 End: 09-16-2024 Patient encounter procedure 09/16/2024 10:20 AM EST Procedure Visit [facility] [address] [facility] [id number] Too Saxena DO [address] [place], [place] [id number] [facility] Start: 06-02-2024 Influenza vaccination Influenza Vacc ine (#1) [facility] Start: 06-02-2021 Influenza vaccination Flu vaccine (# 1) [facility] Start: 2015 Screening for malign ant neoplasm of cervix [facility] Start: 2006 Screening for malign ant neoplasm of cervix Pap smear [facility] Start: 2004 DTaP/Tdap/Td vaccine (1 - Tdap) DTaP/Tdap/Td vaccine (1 - Tdap) [facility] Start: 2000 HIV screening HIV screen [facility] Start: 1997 Depression Screen Depression Screen [facility] Start: 1991 Pneumococcal 0-64 ye ars Vaccine (1 of 2 - PPSV23) Pneumococcal 0-64 years Vaccine (1 of 2 - PPSV23) [facility] Start: 1990 COVID-19 Vaccine (1) COVID-19 Vaccin e (1) [facility] Start: 1986 Varicella vaccine (1 of 2 - 2-dose childhood series) Varicella vaccine (1 of 2 - 2-dose childhood series) [facility] Start: 1985 Hepatitis C screening Hepatitis C sc [facility] Immunizations Immunization Date Immunization Notes Care Provider Fa viktor 07-06-2018 influenza virus vacc ine, unspecified formulation Sarah SHELL Work Phone: [facility] Payers Date Payer Category Payer Self-pay 2023 Medicaid [employer] [place] [employer] [id number] 2023-Present [address] [place] [id number] 2023 Medicaid (Managed Care) [employer] [id number] 2020 Private Health Insurance [id number] [id number]. 7.3.461195.315 1985 Unknown [id number] 2.16.840.1.128568.3.579.2. 175 1985 Unknown [id number] 2.16.840.1.700675.3.579.2. 593 1985 Unknown [id number] 2.16.840.1.399622.3.579.2. 593 1985 Unknown [id number] 2.16.840.1.511073.3.579.2. 593 1985 Unknown [id number] 2.16.840.1.202402.3.579.2. 593 1985 Unknown [id number] 2.16.840.1.539368.3.579.2. 593 1985 Unknown [id number] 2.16.840.1.434857.3.579.2. 1286 1985 Unknown [id number] 2.16.840.1.587129.3.579.2. 1286 1985 Unknown [id number] 2.16.840.1.259636.3.579.2. 1286 1985 Unknown [id number] 2.16.840.1.926988.3.579.2. 1259 1985 Unknown [id number] 2.16.840.1.304763.3.579.2. 1259 1985 Unknown [id number] 2.16.840.1.193241.3.579.2. 1259 1985 Unknown [id number] 2.16.840.1.880873.3.579.2. 1259 1985 Unknown [id number] 2.16.840.1.518788.3.579.2. 1258 1985 Unknown [id number] 2.16.840.1.231820.3.579.2. 1258 1985 Unknown [id number] 2.16.840.1.208637.3.579.2. 1258 1985 Unknown [id number] 2.16.840.1.773170.3.579.2. 1258 1985 Unknown [id number] 2.16.840.1.682775.3.579.2. 1258 1985 Unknown [id number] 2.16.840.1.422270.3.579.2. 1258 1985 Unknown [id number] 2.16.840.1.932889.3.579.2. 1258 1985 Unknown [id number] 2.16.840.1.208836.3.579.2. 1258 1985 Unknown [id number] 2.16.840.1.818900.3.579.2. 1258 1985 Unknown [id number] 2.16.840.1.065978.3.579.2. 1258 1985 Unknown [id number] 2.16.840.1.113540.3.579.2. 1258 1985 Unknown [id number] 2.16.840.1.304496.3.579.2. 1258 1959 Self-pay [id number] 1959 Unknown [id number] 1.2.840.997714.1.13.239.2. 7.3.296003.315 Social History Date Type Detail Facility Start: 10-18-2015 End: 03-11-2024 Tobacco smoking status MDIS Smokes tobacco daily [facility] Phone: Start: 10-18-2015 End: 07-08-2024 Cigarettes smoked current (pack per day) - Reported 0.5 [facility] Phone: Start: 10-18-2015 Alcohol intake Current non-dr editor magazine of alcohol (finding) [facility] Phone: Start: 1985 [facility] Start: 10-02-2018 End: 10-02-2021 History of tobacco use Cigarette Smoker [facility] Start: 03-11-2024 Tobacco use and exposure User of smokeless tobacco [facility] Start: 07-08-2024 Alcoholic beverage intake Ex-drinker (finding) [facility] Start: 07-08-2024 Tobacco use panel [facility] Start: 11-22-2023 Tobacco Comment Cutrently vape . Have not smoked cigarettes in 2 years [facility] Start: 11-22-2023 Alcohol Comment [facility] Start: 11-14-2023 Gender identity Identifies as female gender (finding) [facility] Clinical Notes 02-15-2022 to 10-07-2024 SUMAYA Corona - 10/07/2024 11:40 AM ESTTelephone Encounter - Christin Sanchez - 09/03/2024 2:13 PM ESTTelephone Encounter - Christin Sanchez - 09/03/2024 2:13 PM EST Note Date & Type Note Facility 10-07-2024 History of Presen t illness Narrative Reason for Appointment: Patient ID: Davina Harris is a 39 y.o. female who presents for No chief complaint on file. Patient presents today via telephone call for a telehealth appointment. Patients Phone #: [phone] (mobile) Current Medications: has a current medication list which includes the following prescription(s): clindamycin, fluticasone, magnesium oxide, minocycline, phentermine, phentermine, and ubrelvy, and the following Facility-Administered Medications: levonorgestrel. Medical [...] Last attempt to quit: 2021 Years since quittin.0 Smokeless tobacco: Current Tobacco comments: Cutrently vape. Have not smoked cigarettes in 2 years Vaping Use Vaping status: Every Day Substance Use Topics Alcohol use: Not Currently Alcohol/week: 1.0 standard drink of alcohol Types: 1 Shots of liquor per week Comment: Every Monday Drug use: Never Past Surgical History: Procedure Laterality Date CHOLECYSTECTOMY 2014 COLPOSCOPY 03/11/2024 LGSIL pap Allergies Allergen Reactions [...] recorded. Patient has had an implant. Assessment/Plan No diagnosis found. Today's telehealth visit consisted of spending 5 minutes talking to patient on the phone. Patient states she is doing well and continues to lose weight with adipex. States today she weighs 175 which she felt was good considering holidays. We will send in one more script of adipex as she is at a BMI of just over 30. She will schedule repeat follow up in 2 months Documented by SUMAYA Corona on behalf of: SUMAYA Corona documented in this encounter [facility] 09-03-2024 Telephone encount er Note PT called asking about PA status for Ubrelvy and samples. Advised pt nurse will review PA and call her back. Per nurse 2 sample boxes given to patient. 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 [facility] 09-03-2024 Miscellaneous Notes Formattin g of this note might be different from the original. PT called asking about PA status for Ubrelvy and samples. Advised pt nurse will review PA and call her back. Per nurse 2 sample boxes given to patient. 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 1114 Patient called and LMOM that she would like to discuss medication for migraines and see what determination is on prior authorization. Nursing will reach out to patient to discuss after looking into PA. Anca Leiva LPN documented in this encounter [facility] 09-03-2024 Telephone encount er Note 1114 Patient called and LMOM that she would like to discuss medication for migraines and see what determination is on prior authorization. Nursing will reach out to patient to discuss after looking into PA. Anca Leiva LPN [facility] 08-13-2024 History of Presen t illness Narrative Reason for Appointment: Patient ID: Davina Harris is a 39 y.o. female who presents for No chief complaint on file. Patient presents today via telephone call for a telehealth appointment. Patients Phone #: [phone] (mobile) Current Medications: has a current medication list which includes the following prescription(s): fluticasone, magnesium oxide, phentermine, and phentermine, and the following Facility-Administered Medications: levonorgestrel. Medical History: Active Ambulatory Problems Diagnosis Date Noted No Active Ambulatory Problems Resolved Ambulatory Problems Diagnosis Date Noted No Resolved Ambulatory Problems Past Medical History: Diagnosis Date Allergies Arthritis Kidney stones Migraines (CMS/[facility]) Neck strain 10/2021 Tear of meniscus [...] Past Surgical History: Procedure Laterality Date CHOLECYSTECTOMY 2014 COLPOSCOPY 03/11/2024 LGSIL pap Allergies Allergen Reactions [...] PCP- will call Dr Mcclellan. Pt to apple picking supervisor samples of Nurtec. Pt has complaints of back acne and unable to cool down. Rx for cleocin cream and minocycline daily faxed to pharmacy. Today's telehealth visit consisted of spending 10 minutes talking to patient on the phone. Documented by Amy Galeano LPN on behalf of: Too Saxena DO documented in this encounter [facility] 07-08-2024 History of Presen t illness Narrative [...] Instructions fluticasone (Flonase) 50 MCG/ACT nasal spray [place] 1 spray every day by intranasal route [...] Past Surgical History: Procedure Laterality Date CHOLECYSTECTOMY 2014 COLPOSCOPY 03/11/2024 LGSIL pap REVIEW OF SYSTEMS [...] of: SUMAYA Corona documented in this encounter [facility] 02-15-2022 Note CONSULTATION CONSULTATION DATE: 02/15/2022 CHIEF [...] activity. 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 Pushing, pulling, lifting, housework, folding, ADLs aggravate the pain. She also has low back pain; however, it depends on the weather. The patient states she is allergic to NSAID. It gives her hives. The patient currently takes Edgemont 5/325 t.i.d.; has taken Zanaflex in the past as prescribed by Dr. Meyer. She also takes Fioricet for her headaches. The patient recently, in , had an MRI performed in [place]. Unfortunately, we do not have the report [...] the interim, should the patient need any Edgemont refills, our plan would be to decrease the Edgemont to b.i.d., subsequent to U-Tox. The patient understands and would like to proceed. CC: Yon Meyer D.O. [facility] Signed and Approved by: DR VLAD FERGUSON . 02/22/2022 12:21:[address] [facility] Evaluation note Diagnosis Brachial neuritis Brachial neuritis or radiculitis nos documented in this encounter [facility] Work Phone: evaluation noteNo assessment information available [facility] Work Phone: Evaluation note* Diagnosis Follow-up encounter involving medication Encounter for weight management [facility] Diagnosis Follow-up encounter involving medication Nonintractable headache, unspecified chronicity pattern, unspecified headache type Acne, unspecified acne type documented [facility] Diagnosis Encounter for weight management- Primary documented in this encounter [facility] Summary Purpose Family History No Family History Records FoundNo Family History Records FoundNo Family History Records FoundNo Family History Records FoundNo Family History Records FoundNo Family History Records FoundNo Family History Records Found Advance Directives No Advanced Directives Records FoundDocuments on File Type Date Recorded Patient Hvac Manager Expl anation ACP-Advance Directive ACP-Power of Sports Equipment Supervisor Reason for Referral Specialty Diagnoses / Procedures Referred By Contac t Referred To Contact Radiology Diagnoses Brachial neuritis Procedures MRI CERVICAL SPINE WO CONTRAST [id number], [id number] Yon Meyer MD [address] [place] [id number] Referral ID Status Reason Start Date Expiration Date Visits Re quested Visits Authorized [id number] Closed 10/04/2021 11/03/2021 1 1 Additional Source Comments INFORMATION SOURCE (unrecogn ized section and content) DATE CREATED AUTHOR 11/07/[address] [facility] DATE CREATED AUTHOR AUTHOR'S ORGANIZ ATION 10/15/2021 [facility] DATE CREATED AUTHOR AUTHOR'S ORGANIZ ATION 06/04/2022 [facility] DATE CREATED AUTHOR AUTHOR'S ORGANIZ ATION 07/03/2022 [facility] pital DATE CREATED AUTHOR AUTHOR'S ORGANIZ ATION 03/15/2024 [facility] DATE CREATED AUTHOR AUTHOR'S ORGANIZ ATION 06/08/2024 [facility] DATE CREATED AUTHOR AUTHOR'S ORGANIZ ATION 10/13/2024 [facility] d[facility] Special[facility] EPIC Reason for Visit (unrecogniz ed section and content) Specialty Diagnoses / Procedures Referred By Contac t Referred To Contact Radiology Diagnoses Brachial neuritis Procedures MRI CERVICAL SPINE WO CONTRAST [id number], [id number] Yon Meyer MD [address] [address] Referral ID Status Reason Start Date Expiration Date Visits Re quested Visits Authorized [id number] Closed 10/04/2021 11/03/2021 1 1 Reason Comments [...] Care Teams (unrecognized sec tion and content) Alcoholism Worker Relationship Specialty Start Date End Date Yon Meyer MD [address] [place] [address] PCP - [facility] 09/30/21 Team Status: Inactive Member Role Status Dates Too Saxena Attending Provider Active Start: Ayesha 2023 End: March 11, 2024 Alcoholism Worker Relationship Specialty Start Date End Date Unallocated, Juan Howell MD [address] [place] [address] PCP - [facility] 11/22/23 Ramandeep Carrasco, VESSEL MASTER [address] [place] [address] PCP - [facility] 04/01/24 Alcoholism Worker Relationship Specialty Start Date End Date Unallocated, Juan Howell MD [address] [place] [address] PCP - [facility] 11/22/23 Ramandeep Carrasco, VESSEL MASTER [address] [place] [address] PCP - [facility] 04/01/24 Alcoholism Worker Relationship Specialty Start Date End Date Unallocated, Juan Howell MD [address] [place] [address] PCP - [facility] 11/22/23 Ramandeep Carrasco, VESSEL MASTER [address] [facility] [address] [place] [address] PCP - [facility] 04/01/24 Alcoholism Worker Relationship Specialty Start Date End Date Unallocated, Juan Howell MD [address] [place] [address] PCP - [facility] 11/22/23 Ramandeep Carrasco, VESSEL MASTER [address] [facility] [address] [place] [address] PCP - [facility] 04/01/24 Alcoholism Worker Relationship Specialty Start Date End Date Unallocated, [facility] Provider, [place] [address] PCP - General Family Medicine 11/22/23 Ramandeep Carrasco, VESSEL MASTER [address] [facility] [address] [place] [address] PCP - [facility] 04/01/24 Goals (unrecognized section and content) Goals [...] BE BASED ON THE PRIMARY CLINICAL RECORDS. [facility] [employer] [facility]. provides no warranty or guarantee of the accuracy or completeness of information in this document.
[2024-11-18 07:06] VITALS: BP 129/94; PULSE 104; TEMP 36.3; O2SAT 100; BMI 31.2
[2024-11-18] MEDS: 0.9 % SODIUM CHLORIDE 1,000 ML 100 ML IV (07:15)
[2024-11-18] MEDS: ONDANSETRON PF 4 MG/2 ML VIAL IV ×2 (07:15→09:54)
[2024-11-18 07:24] LABS: Basophils Absolute Auto 0.1 10^3/uL (0.0-0.1); Basophils Percent Auto 0.2 % (0.2-2.0); Eosinophils Absolute Auto 0.1 10^3/uL (0.0-0.7); Eosinophils Percent Auto 0.5 % (0.9-7.0); Hemoglobin 14.3 g/dL (12.0-16.0); Immature Granulocytes Abs Auto 0.08 10^3/uL (0.00-0.03); Immature Granulocytes Pct Auto 0.4 % (0.0-0.5); Lymphocytes Percent Auto 4.6 % (20.5-60.0); Mean Corpuscular HGB Conc 33.3 g/dL (29.9-35.2); Mean Corpuscular Hemoglobin 27.7 pg (26.7-34.0); Mean Corpuscular Volume 83.3 fL (81.0-99.0); Mean Platelet Volume 9.9 fL (9.5-13.5); Monocytes Absolute Auto 0.9 10^3/uL (0.3-0.8); Monocytes Percent Auto 4.1 % (1.7-12.0); Neutrophils Absolute Auto 19.1 10^3/uL (1.4-6.5); Neutrophils Percent Auto 90.2 % (43.0-75.0); Platelet Count 346 10^3/uL (150-450); Red Blood Count 5.16 10^6/uL (4.20-5.40); Red Cell Distribution Width 13.6 % (11.0-15.0); White Blood Count 21.1 10^3/uL (4.0-11.0)
[2024-11-18 07:41] LABS: Alanine Aminotransferase 23 U/L (14-59); Albumin Level 4.1 g/dL (3.4-5.0); Alkaline Phosphatase 80 U/L (46-116); Anion Gap 12.4; Aspartate Amino Transferase 22 U/L (15-37); BUN Creatinine Ratio 12.1; Bilirubin Total 0.4 mg/dL (0.2-1.0); Calcium 9.3 mg/dL (8.5-10.1); Carbon Dioxide 26.9 mmol/L (21.0-32.0); Chloride 102 mmol/L (98-107); Estimated GFR (African America >60 (>=60 mL/min/1.73m^2); Estimated GFR (Non-African Ame >60 (>=60 mL/min/1.73m^2); Globulin 4.3 g/dL; Glucose 131 mg/dL (74-106); Potassium 3.3 mmol/L (3.5-5.1); Sodium 138 mmol/L (136-145); Total Protein 8.4 g/dL (6.4-8.2)
[2024-11-18 07:59] LABS: Influenza Virus A Antigen Negative; Influenza Virus B Antigen Negative; Internal Control Within Normal Limits; SARS-CoV-2 Ag NEGATIVE (NEGATIVE)
--- NOTE | 2024-11-18 08:28 | ED.GENADUL1 ---
HPI HPI - General Adult General Chief complaint: Nausea/Vomiting/Diarrhea Stated complaint: NVD Time Seen by Provider: 11/18/24 07:24 Source: patient Mode of arrival: walk-in Limitations: no limitations History of Present Illness HPI narrative: Patient is a 39-year-old female who is presenting to the ER with chief complaint of intractable nausea, vomiting, diarrhea that started at 5 AM this morning. Patient has had upper respiratory sinus symptoms for the past couple weeks. Patient was at a urgent care a few Fridays ago she stated, patient just stopped taking Augmentin 2 days ago. Patient significant other is at bedside. Patient has sinus congestion, no significant headache. No neck pain. No chest pain or shortness of breath. Patient has mild abdominal cramping, she does not have her gallbladder. Patient says that she has not had a period/menses in years, she is on a IUD. Patient has no urinary frequency urgency or burning. Patient has no other acute complaints. All systems are negative except as noted/marked. All systems reviewed and otherwise negative. Nurses note and vital signs reviewed and patient is not hypoxic. General: The patient appears well and in no apparent distress. Patient is resting comfortably on cart. Patient is not toxic, lethargic, or listless Skin: Warm, dry, no pallor noted. There is no rash noted. No petechiae, purpura. Head: Normocephalic, atraumatic Eye: Normal conjunctiva, no drainage, EOMI. PERRL Ears, Nose, Mouth, and Throat: oral mucosa is moist. Nares patent. Mouth without vesicles. Cardiovascular: Regular Rate and Rhythm, no murmur, gallop, rub Respiratory: Patient is in no distress, no accessory muscle use, lungs are clear to auscultation, no wheezing, rales or rhonchi Back: non-tender, no CVA tenderness bilaterally to percussion. No CT LS midline pain GI: Very minimal tenderness to palpation of right lower quadrant, no pain or McBurney's point. Negative Fitzgerald sign. No flank pain bilateral. Abdomen is soft, no suprapubic tenderness to palpation. No tenderness to palpation, no masses appreciated. No rebound, guarding, or rigidity noted. No distention Musculoskeletal: Patient has full range of motion of all of the extremities, no motor, sensory, or focal neurological deficits Neurological: A&O x4, normal speech Psychiatric: Cooperative Related Data Previous Rx's ?Medication ?Instructions ?Recorded dicyclomine 10 mg capsule 10 mg PO QID PRN abdominal pain 07/05/23 #20 caps dicyclomine 20 mg tablet 20 mg PO TID PRN abdominal pain #7 11/18/24 tabs ondansetron 4 mg disintegrating 4 mg PO Q4H PRN nausea and 11/18/24 tablet vomiting 3 days #6 tabs promethazine 25 mg rectal 25 mg OK Q6H PRN nausea and 11/18/24 suppository vomiting #6 ea Allergies Allergy/AdvReac Type Severity Reaction Status Date / Time sumatriptan (From Imitrex) Allergy Severe Anaphylaxis Verified 09/27/24 21:47 ibuprofen (From Motrin) Allergy Hives Verified 09/27/24 21:47 Sulfa (Sulfonamide Allergy Hives Verified 09/27/24 21:47 Antibiotics) Opioid HPI Opioid Management Most Recent Opioid Data: No Data to Display PFSH PFSH Social History Little interest or pleasure in doing things: not at all Feeling down, depressed, or hopeless: not at all Exam Constitutional Vital Signs, click to edit/add: Last Vital Signs Temp 97.4 F L 11/18/24 07:06 Pulse 88 11/18/24 09:15 Resp 18 11/18/24 09:15 BP 114/67 11/18/24 09:15 Pulse Ox 98 11/18/24 09:15 O2 Del Method Room Air 11/18/24 09:15 Course Vital Signs Vital signs: Vital Signs Temperature 97.4 F L 11/18/24 07:06 Pulse Rate 104 H 11/18/24 07:06 Respiratory Rate 18 11/18/24 07:06 Blood Pressure 129/94 H 11/18/24 07:06 Pulse Oximetry 100 11/18/24 07:06 Oxygen Delivery Method Room Air 11/18/24 07:06 Temperature 97.4 F L 11/18/24 07:06 Pulse Rate 88 11/18/24 09:15 Respiratory Rate 18 11/18/24 09:15 Blood Pressure 114/67 11/18/24 09:15 Pulse Oximetry 98 11/18/24 09:15 Oxygen Delivery Method Room Air 11/18/24 09:15 Medical Decision Making MDM Narrative Medical decision making narrative: Patient felt better after IV fluids and Zofran given initially. Patient has elevated white blood cells of 21. Patient has minimal pain to right lower quadrant, soft, no peritoneal signs, no guarding, rebound, rigidity. No suprapubic pain. No flank pain. Nonsurgical abdomen. Education was given on why to return back to the ER if intractable abdominal pain, nausea or vomiting. Patient will follow-up with PCP as needed. Patient was given a work note. Patient was sent home with prescription for Zofran and Phenergan. No questions discharge. Patient potassium was low, patient was encouraged to drink Gatorade, Powerade for the next several days along with woman's One-A-Day vitamin Lab Data Lab results reviewed: Yes I reviewed the patient's lab results Labs: Lab Results 11/18/24 11/18/24 11/18/24 Range/Units 07:10 07:40 08:45 WBC 21.1 H (4.0-11.0) 10^3/uL RBC 5.16 (4.20-5.40) 10^6/uL Hgb 14.3 (12.0-16.0) g/dL Hct 43.0 (36.0-48.0) % MCV 83.3 (81.0-99.0) fL MCH 27.7 (26.7-34.0) pg MCHC 33.3 (29.9-35.2) g/dL RDW 13.6 (11.0-15.0) % Plt Count 346 (150-450) 10^3/uL MPV 9.9 (9.5-13.5) fL Neut % (Auto) 90.2 H (43.0-75.0) % Lymph % (Auto) 4.6 L (20.5-60.0) % [place] % (Auto) 4.1 (1.7-12.0) % Eos % (Auto) 0.5 L (0.9-7.0) % Baso % (Auto) 0.2 (0.2-2.0) % Neut # (Auto) 19.1 H (1.4-6.5) 10^3/uL Lymph # (Auto) 1.0 L (1.2-3.8) 10^3/uL [place] # (Auto) 0.9 H (0.3-0.8) 10^3/uL Eos # (Auto) 0.1 (0.0-0.7) 10^3/uL Baso # (Auto) 0.1 (0.0-0.1) 10^3/uL Abs Immat Gran (auto) 0.08 H (0.00-0.03) 10^3/uL Imm/Tot Granulo (auto) 0.4 (0.0-0.5) % Sodium 138 (136-145) mmol/L Potassium 3.3 L (3.5-5.1) mmol/L Chloride 102 (98-107) mmol/L Carbon Dioxide 26.9 (21.0-32.0) mmol/L Anion Gap 12.4 BUN 12.0 (7.0-18.0) mg/dL Creatinine 0.99 (0.55-1.02) mg/dL Est GFR ( Amer) >60 (>=60 mL/min/1.73m^2) Est GFR (Non-Af Amer) >60 (>=60 mL/min/1.73m^2) BUN/Creatinine Ratio 12.1 Glucose 131 H (74-106) mg/dL Lactate 1.0 (0.4-2.0) mmol/L Calcium 9.3 (8.5-10.1) mg/dL Total Bilirubin 0.4 (0.2-1.0) mg/dL AST 22 (15-37) U/L ALT 23 (14-59) U/L Alkaline Phosphatase 80 (46-116) U/L Total Protein 8.4 H (6.4-8.2) g/dL Albumin 4.1 (3.4-5.0) g/dL Globulin 4.3 g/dL Albumin/Globulin Ratio 1.0 Lipase 21.0 (16.0-77.0) U/L Urine Color Yellow (YELLOW) Urine Clarity Clear (CLEAR) Urine pH 6.0 (5.0-9.0) Ur Specific [place] 1.025 (1.005-1.025) Urine Protein Negative (NEG/TRACE) mg/dL Urine Glucose (UA) Negative (NEGATIVE) mg/dL Urine Ketones 15 A (NEGATIVE) mg/dL Urine Occult Blood Negative (NEGATIVE) Urine Nitrite Negative (NEGATIVE) Urine Bilirubin Negative (NEGATIVE) Urine Urobilinogen 0.2 (0.2-1.0) EU/dL Ur Leukocyte Esterase Negative (NEGATIVE) Urine RBC None seen (0-2) #/HPF Urine WBC 0-2 A (NONE SEEN) #/HPF Ur Squamous Epith Cells Moderate A (NONE/RARE) #/LPF Urine Crystals None seen (None Seen) #/HPF Urine Bacteria Large A (NONE SEEN) #/HPF Urine Casts Seen A (NONE SEEN) #/LPF Hyaline Casts Few Urine Mucus Large A (NONE SEEN) Ur Culture Indicated? Yes-[facility] – [place] Influenza Type A Ag Negative Influenza Type B Ag Negative SARS-CoV-2 Ag (CV2AG) Negative (NEGATIVE) Discharge Plan Discharge Stand Alone Forms: Work/School Release Chief Complaint: Nausea/Vomiting/Diarrhea Clinical Impression: Nausea & vomiting, Diarrhea Patient Disposition: Home, Self-Care Time of Disposition Decision: 09:44 Condition: Fair Prescriptions / Home Meds: New promethazine 25 mg suppository 25 mg OK Q6H PRN (Reason: nausea and vomiting) Qty: 6 0RF dicyclomine 20 mg tablet 20 mg PO TID PRN (Reason: abdominal pain) Qty: 7 0RF ondansetron 4 mg tablet,disintegrating 4 mg PO Q4H PRN (Reason: nausea and vomiting) 3 Days Qty: 6 0RF No Action dicyclomine 10 mg capsule 10 mg PO QID PRN (Reason: abdominal pain) Qty: 20 0RF Print Language: Portuguese Instructions: Acute Nausea and Vomiting (ED), Acute Diarrhea (ED) Additional Instructions: Your urine shows questionable infection but it is also contaminated with skin cells. Urine culture is pending. Use Zofran as needed for nausea along with Phenergan suppositories if needed. Increase Gatorade, Powerade, and fluids. Follow-up with PCP, work note given Increase fluids at home, Gatorade, Powerade, or water. Alternate using DayQuil, NyQuil, and Flonase. Add Mucinex as well as needed. Alternate Tylenol and Motrin every 4 hours to help with fever control, body aches or joint pain. Use [id number] vitamin C, vitamin D3, and zinc to help fight infection and help with her immune system. Referrals: RACHEL KUHN [Primary Care Provider] - 1 week
[2024-11-18 08:56] LABS: Bilirubin Urine NEGATIVE (NEGATIVE); Blood Urine NEGATIVE (NEGATIVE); Clarity Urine CLEAR (CLEAR); Color Urine YELLOW (YELLOW); Glucose Urine UA NEGATIVE (NEGATIVE); Ketones Urine 15 mg/dL (NEGATIVE); Leukocyte Esterase Urine NEGATIVE (NEGATIVE); Nitrite Urine NEGATIVE (NEGATIVE); Protein Urine NEGATIVE (NEG/TRACE); Specific Gravity Urine 1.025 (1.005-1.025); Urobilinogen Urine 0.2 EU/dL (0.2-1.0)
[2024-11-18 09:15] VITALS: BP 114/67; PULSE 88; O2SAT 98
[2024-11-18 09:15] LABS: Squamous Epithelial Cell Urine MODERATE #/LPF (NONE/RARE)
[2024-11-18 09:16] LABS: Bacteria Urine LARGE #/HPF (NONE SEEN); Mucus Urine LARGE (NONE SEEN); RBC Urine NONE SEEN #/HPF (0-2); WBC Urine 0-2 #/HPF (NONE SEEN)
[2024-11-18 09:17] LABS: Cast Seen? SEEN #/LPF (NONE SEEN); Crystals Seen? None Seen #/HPF (None Seen); Hyaline Casts Urine FEW; Urine Culture Indicated YES-FRMC
== END 2024-11-18 10:13 | disposition home or self-care (01) ==
PROVIDERS: Emergency Provider Emergency Medicine; PCP Family Medicine
DX: R11.2 Nausea with vomiting, unspecified (principal); R19.7 Diarrhea, unspecified; R10.31 Right lower quadrant pain; Z97.5 Presence of (intrauterine) contraceptive device
CPT/HCPCS: 36415; 80053; 81001; 83605; 83690; 85025; 87086; 87804; 87811; 96361; 96374; 96376; 99284; J2405